=== PATIENT | female | born 1990 | race Two or more races ===

== ENCOUNTER 2016-07-10 10:22 | Emergency (ER) | payer OTHER ==
[2016-07-10 10:42] VITALS: BP 121/73
[2016-07-10 10:50] LABS: BILIRUBIN,URINE NEGATIVE (NEG); GLUCOSE,URINE NEGATIVE (NEG); NITRITE,URINE NEGATIVE (NEG); PH,URINE 5.5; PROTEIN,URINE NEGATIVE (NEG-TRACE); UROBILINOGEN,URINE 0.2 mg/dL (0.2 mg/dL)
[2016-07-10 11:03] LABS: RBC,URINE 0 /HPF (0-2)
[2016-07-10 11:04] LABS: BACTERIA,URINE MOD /HPF (0-FEW); SQUAMOUS EPITHELIAL CELL,UR FEW /LPF
[2016-07-10 11:11] LABS: BASO % 0 % (0-3); EOS % 1 % (0-3); HEMATOCRIT 39.6 % (36.0-47.0); HEMOGLOBIN 13.1 g/dL (12.0-15.5); LYMPH # 0.9 x10^3/uL (1.0-4.8); LYMPH % 10 % (24-48); MEAN CORPUSCULAR HEMOGLOBIN 30 pg (25-35); MEAN CORPUSCULAR HGB CONC 33 g/dL (31-37); MEAN CORPUSCULAR VOLUME 89 fL (79-100); MONO % 5 % (0-9); NEUT % 84 % (31-73); PLATELET COUNT 363 x10^3/uL (140-400); RED BLOOD COUNT 4.43 x10^6/uL (3.50-5.40); WHITE BLOOD COUNT 9.6 x10^3/uL (4.0-11.0)
[2016-07-10] MEDS ORDERED: IV NORMAL SALINE 1000ML BAG 1,000 ML IV ONE (11:15)
[2016-07-10] MEDS ORDERED: KETOROLAC TROMETHAMINE 30 MG/ML INJ. IV ONE (11:15)
[2016-07-10] MEDS ORDERED: FAMOTIDINE 20 MG/2 ML VIAL IVP ONE (11:15)
[2016-07-10 11:44] LABS: ALBUMIN 3.9 g/dL (3.4-5.0); ALBUMIN/GLOBULIN RATIO 0.9 (1.0-1.7); CALCIUM 9.1 mg/dL (8.5-10.1); CREATININE 0.7 mg/dL (0.6-1.0); POTASSIUM 3.8 mmol/L (3.5-5.1); TOTAL BILIRUBIN 0.7 mg/dL (0.2-1.0); TOTAL PROTEIN 8.4 g/dL (6.4-8.2)
--- NOTE | 2016-07-10 12:28 | PHYS DOC ---
Past Medical History Past Medical History: Migraines Past Surgical History: Alcohol Use: None Drug Use: None Adult General Chief Complaint Chief Complaint: ABDOMINAL PAIN HPI HPI Patient is a 26 year old female with no significant medical history who presents with nausea vomiting and diarrhea since yesterday. Patient's also complaining of generalized abdominal pain. She states most of it is left upper quadrant. Patient denies any chance she is , denies any urgency frequency dysuria. Denies any alcohol abuse. Review of Systems Review of Systems Constitutional: Denies fever or chills [] Eyes: Denies change in visual acuity, redness, or eye pain [] HENT: Denies nasal congestion or sore throat [] Respiratory: Denies cough or shortness of breath [] Cardiovascular: No additional information not addressed in HPI [] GI: abdominal pain, nausea, vomiting, and diarrhea [] : Denies dysuria or hematuria [] Musculoskeletal: Denies back pain or joint pain [] Integument: Denies rash or skin lesions [] Neurologic: Denies headache, focal weakness or sensory changes [] Endocrine: Denies polyuria or polydipsia [] Current Medications Current Medications Current Medications Medications (Trade) Dose Ordered Sig/Ayah Start Time Stop Time Status Last Admin Dose Admin Famotidine (Pepcid) 20 mg 1X ONCE 07/10/16 11:15 07/10/16 11:16 DC 07/10/16 11:07 20 MG Ketorolac Tromethamine (Toradol) 30 mg 1X ONCE 07/10/16 11:15 07/10/16 11:16 DC 07/10/16 11:08 30 MG Sodium Chloride 1,000 ml @ 1,000 mls/hr 1X ONCE 07/10/16 11:15 07/10/16 12:14 DC 07/10/16 11:07 1,000 MLS/HR Allergies Allergies Allergies Coded Allergies Type Severity Reaction Last Updated Verified No Known Drug Allergies 07/10/16 No Physical Exam Physical Exam Constitutional: Well developed, well nourished, no acute distress, non-toxic appearance. [] HENT: Normocephalic, atraumatic, bilateral external ears normal, oropharynx moist, no oral exudates, nose normal. [] Eyes: PERRLA, EOMI, conjunctiva normal, no discharge. [] Neck: Normal range of motion, no tenderness, supple, no stridor. [] Cardiovascular:Heart rate regular rhythm, no murmur [] Lungs & Thorax: Bilateral breath sounds clear to auscultation [] Abdomen: Bowel sounds normal, soft, no tenderness, no masses, no pulsatile masses. [] Skin: Warm, dry, no erythema, no rash. [] Back: No tenderness, no CVA tenderness. [] Extremities: No tenderness, no cyanosis, no clubbing, ROM intact, no edema. [] Neurologic: Alert and oriented X 3, normal motor function, normal sensory function, no focal deficits noted. [] Psychologic: Affect normal, judgement normal, mood normal. [] Current Patient Data Vital Signs Vital Signs Date Time Temp Pulse Resp B/P (MAP) Pulse Ox O2 Delivery O2 Flow Rate FiO2 07/10/16 10:42 97.7 75 16 121/73 (89) 98 Room Air 97.7 Lab Values Laboratory Tests Test 07/10/16 09:44 07/10/16 10:35 07/10/16 10:42 POC Urine HCG, Qualitative Hcg negative (Negative) Urine Collection Type Void Urine Color Yellow Urine Clarity Clear Urine pH 5.5 Urine Specific [place] 1.020 Urine Protein Negative mg/dL (NEG-TRACE) Urine Glucose (UA) Negative mg/dL (NEG) Urine Ketones (Stick) Trace mg/dL (NEG) Urine Blood Small (NEG) Urine Nitrite Negative (NEG) Urine Bilirubin Negative (NEG) Urine Urobilinogen Dipstick 0.2 mg/dL (0.2 mg/dL) Urine Leukocyte Esterase Small (NEG) Urine RBC 0 /HPF (0-2) Urine WBC 5-10 /HPF (0-4) Urine Squamous Epithelial Cells Few /LPF Urine Bacteria Mod /HPF (0-FEW) Urine Mucus Marked /LPF Urine Opiates Screen Neg (NEG) Urine Methadone Screen Neg (NEG) Urine Barbiturates Neg (NEG) Urine Phencyclidine Screen Neg (NEG) Urine Amphetamine/Methamphetamine Neg (NEG) Urine Benzodiazepines Screen Neg (NEG) Urine Cocaine Screen Neg (NEG) Urine Cannabinoids Screen Neg (NEG) Urine Ethyl Alcohol Neg (NEG) White Blood Count 9.6 x10^3/uL (4.0-11.0) Red Blood Count 4.43 x10^6/uL (3.50-5.40) Hemoglobin 13.1 g/dL (12.0-15.5) Hematocrit 39.6 % (36.0-47.0) Mean Corpuscular Volume 89 fL (79-100) Mean Corpuscular Hemoglobin 30 pg (25-35) Mean Corpuscular Hemoglobin Concent 33 g/dL (31-37) Red Cell Distribution Width 14.0 % (11.5-14.5) Platelet Count 363 x10^3/uL (140-400) Neutrophils (%) (Auto) 84 % (31-73) H Lymphocytes (%) (Auto) 10 % (24-48) L Monocytes (%) (Auto) 5 % (0-9) Eosinophils (%) (Auto) 1 % (0-3) Basophils (%) (Auto) 0 % (0-3) Neutrophils # (Auto) 8.1 x10^3uL (1.8-7.7) H Lymphocytes # (Auto) 0.9 x10^3/uL (1.0-4.8) L Monocytes # (Auto) 0.5 x10^3/uL (0.0-1.1) Eosinophils # (Auto) 0.1 x10^3/uL (0.0-0.7) Basophils # (Auto) 0.0 x10^3/uL (0.0-0.2) Sodium Level 140 mmol/L (136-145) Potassium Level 3.8 mmol/L (3.5-5.1) Chloride Level 103 mmol/L (98-107) Carbon Dioxide Level 27 mmol/L (21-32) Anion Gap 10 (6-14) Blood Urea Nitrogen 16 mg/dL (7-20) Creatinine 0.7 mg/dL (0.6-1.0) Estimated GFR (Cockcroft-Gault) 102.0 BUN/Creatinine Ratio 23 (6-20) H Glucose Level 113 mg/dL (70-99) H Calcium Level 9.1 mg/dL (8.5-10.1) Total Bilirubin 0.7 mg/dL (0.2-1.0) Aspartate Amino Transferase (AST) 43 U/L (15-37) H Alanine Aminotransferase (ALT) 65 U/L (14-59) H Alkaline Phosphatase 81 U/L (46-116) Total Protein 8.4 g/dL (6.4-8.2) H Albumin 3.9 g/dL (3.4-5.0) Albumin/Globulin Ratio 0.9 (1.0-1.7) L Lipase 107 U/L (73-393) Ethyl Alcohol Level < 10 mg/dL (0-10) Laboratory Tests 07/10/16 10:42 Laboratory Tests 07/10/16 10:42 EKG EKG [] Radiology/Procedures Radiology/Procedures [] Course & Med Decision Making Course & Med Decision Making Pertinent Labs and Imaging studies reviewed. (See chart for details) This is a 26-year-old female patient who presents today with nausea vomiting diarrhea and abdominal pain since yesterday. Negative urine hCG, urine positive for small amount of leukocytes. Urine also shows patient is dehydrated. CBC no acute findings. CMP with AST of 43 ALT of 65. We did order abdominal ultrasound. Abdominal ultrasound is negative for any acute findings. Patient's symptoms are probably viral. Discharged with Bactrim for UTI. Instructed push fluids and maintain good hand hygiene. Follow-up with her own doctor in 1-2 weeks. Dragon Disclaimer Dragon Disclaimer This electronic medical record was generated, in whole or in part, using a voice recognition dictation system. Departure Departure Impression: Primary Impression: Nausea and vomiting Additional Impressions: Diarrhea Urinary tract infection Dehydration Elevated liver enzymes Disposition: 01 HOME, SELF-CARE Condition: STABLE Referrals: JEFFY FARLEY MD (PCP) Follow-up with your doctor in one week Patient Instructions: Diarrhea, Nausea and Vomiting, Urinary Tract Infection Additional Instructions: You were seen for nausea vomiting and diarrhea. This this symptoms are typically a viral. You also have urinary tract infection complete Bactrim. Take the prescribed medicines as needed for nausea and vomiting. Push fluids and maintain good hygiene at home Scripts Sulfamethoxazole/Trimethoprim (BACTRIM DS TABLET) 1 Each Tablet 1 TAB PO BID, #6 TAB Prov: MUTUNGA,JULIETTE TRACK LAYING EQUIPMENT OPERATOR 07/10/16 Ondansetron (ZOFRAN ODT) 4 Mg Tab.rapdis 1 TAB SL Q8HRS, #15 TAB Prov: MUTUNGA,JULIETTE [employer] LAYING EQUIPMENT OPERATOR 07/10/16 Problem Qualifiers Primary Impression: Nausea and vomiting Vomiting type: unspecified Vomiting Intractability: non-intractable Qualified Codes: R11.2 - Nausea with vomiting, unspecified Additional Impressions: Diarrhea Diarrhea type: unspecified type Qualified Codes: R19.7 - Diarrhea, unspecified Urinary tract infection Urinary tract infection type: site unspecified Hematuria presence: without hematuria Qualified Codes: N39.0 - Urinary tract infection, site not specified JULIETTE MOY APRN Jul 10, 2016 12:28
--- NOTE | 2016-07-10 12:42 | RAD ---
Indication: Left upper quadrant pain. The pancreas and aorta are poorly visualized likely owing to patient body habitus. Liver is mildly enlarged at 17.2 cm. There is increased echogenicity consistent with fatty infiltration. No focal mass is identified. The gallbladder is without stones or sludge. No wall thickening or pericholecystic fluid is identified. No biliary ductal dilatation is seen. The spleen is normal in size. The kidneys are unremarkable. No ascites is seen. Impression: Mild hepatomegaly and fatty infiltration. The study is otherwise unremarkable.
[2016-07-10 13:40] LABS: BARBITURATES NEG (NEG); BENZODIAZEPINES NEG (NEG); CANNABINOIDS NEG (NEG); COCAINE NEG (NEG); METHADONE NEG (NEG); OPIATES NEG (NEG); PHENCYCLIDINE NEG (NEG)
[2016-07-10] MEDS ORDERED: SULF1TAB24 PO (13:52)
[2016-07-10] MEDS ORDERED: ONDA4TAB10 SL (13:52)
== END 2016-07-10 13:56 | disposition home or self-care (01) ==
LOC: ER 10:22
DX: N39.0 Urinary tract infection, site not specified (principal); G43.909 Migraine, unspecified, not intractable, without status migrainosus; R79.89 Other specified abnormal findings of blood chemistry; R19.7 Diarrhea, unspecified; E86.0 Dehydration
CPT/HCPCS: 36415; 76700; 80053; 80305; 80320; 81001; 81025; 83690; 85027; 96361; 96374; 96375; 99285; J1885; J7030; S0028; G0480; G0481

== ENCOUNTER → 2018-08-17 | Outpatient (CLI) | payer OTHER ==
[~2018-08-17] MED LIST: ONDA4TAB10 SL; SULF1TAB24 PO
[2018-08-17 10:38] LABS: BASO % 1 % (0-3); EOS # 0.1 x10^3/uL (0.0-0.7); EOS % 1 % (0-3); HEMATOCRIT 37.4 % (36.0-47.0); HEMOGLOBIN 12.7 g/dL (12.0-15.5); LYMPH % 17 % (24-48); MEAN CORPUSCULAR HEMOGLOBIN 29 pg (25-35); MEAN CORPUSCULAR HGB CONC 34 g/dL (31-37); MEAN CORPUSCULAR VOLUME 87 fL (79-100); MONO # 0.4 x10^3/uL (0.0-1.1); MONO % 7 % (0-9); NEUT # 4.5 x10^3/uL (1.8-7.7); NEUT % 75 % (31-73); PLATELET COUNT 357 x10^3/uL (140-400); RED BLOOD COUNT 4.31 x10^6/uL (3.50-5.40); RED CELL DISTRIBUTION WIDTH 14.5 % (11.5-14.5); WHITE BLOOD COUNT 6.1 x10^3/uL (4.0-11.0)
[2018-08-17 10:48] LABS: ALBUMIN 3.7 g/dL (3.4-5.0); ALBUMIN/GLOBULIN RATIO 0.9 (1.0-1.7); CREATININE 0.7 mg/dL (0.6-1.0); GFR 100.4; POTASSIUM 3.8 mmol/L (3.5-5.1); TOTAL BILIRUBIN 0.8 mg/dL (0.2-1.0); TOTAL PROTEIN 7.9 g/dL (6.4-8.2)
[2018-08-17 10:59] LABS: FREE T4 1.04 ng/dL (0.76-1.46); THYROID STIM HORMONE (TSH) 0.854 uIU/mL (0.358-3.74)
[2018-08-17 21:10] LABS: THYROPEROXIDASE ANTIBODY 16 IU/mL (0-34); THYROXINE 9.3 ug/dL (4.5-12.0)
[2018-08-17 22:08] LABS: RHEUMATOID FACTOR <10.0 IU/mL (0.0-13.9)
== END | disposition home or self-care (01) ==
LOC: LAB 10:04
PROVIDERS: ATTEND Nurse Practitioner Family
DX: M25.50 Pain in unspecified joint (principal); E04.9 Nontoxic goiter, unspecified
CPT/HCPCS: 36415; 80053; 82306; 83540; 83550; 84436; 84439; 84443; 84481; 85025; 86376; 86431

== ENCOUNTER → 2018-08-21 | Outpatient (CLI) | payer OTHER ==
--- NOTE | 2018-08-21 17:04 | KCIC ---
Examination: Ultrasound thyroid HISTORY: History of thyroid nodule COMPARISON: None available FINDINGS: The right lobe of thyroid gland measures 5.1 x 1.2 x 1.8 cm. The left lobe of thyroid gland measures 4.7 x 1.8 x 2.2 cm. There is a solid-appearing nodule in the superior left lobe of the thyroid gland measuring 5 mm. A 8 mm solid nodule identified in the midpole of the left lobe of the thyroid gland. A large 2.7 cm complex solid nodule identified in the lower left lobe of the thyroid gland with vascularity within. IMPRESSION: 1. Complex solid nodule measuring 2.7 cm identified in the inferior left lobe of thyroid gland. Moderately suspicious. ACR TR 4.Recommend fine-needle aspiration. Electronically signed by: Tomás Loaiza MD (08/21/2018 5:01 PM) [facility]
== END | disposition home or self-care (01) ==
LOC: KCIC US 14:32
PROVIDERS: ATTEND Nurse Practitioner Family
DX: E04.2 Nontoxic multinodular goiter (principal)
CPT/HCPCS: 76536

== ENCOUNTER → 2018-09-18 | Outpatient (CLI) | payer OTHER ==
--- NOTE | 2018-09-18 12:43 | RAD ---
CLINICAL HISTORY: Left thyroid nodule COMPARISON: 08/21/2018 PROCEDURE: Preliminary sonographic images of the left thyroid were obtained. A 2.8 x 1.5 x 1.8 cm heterogeneously hypoechoic solid nodule is seen. The procedure and risks of ultrasound guided aspiration were explained to the patient and informed written consent obtained. Verification pause was observed. Laterality was confirmed. The site of aspiration was marked. Using standard sterile technique, 4 25 G fine needle aspirations of the left thyroid nodule were obtained. There were no immediate complications. Estimated blood loss: 0 mL Performing physician: Dr. Cordelia Padilal IMPRESSION: 1. Successful FNA of the left thyroid nodule Electronically signed by: Boogie Padilla MD (09/18/2018 12:40 PM) [facility]
--- NOTE | 2018-09-22 19:06 | PATHOLOGY ---
Note [facility] Accession Number: [id number] TESTS RESULT FLAG UNITS REF RANGE LAB Clinician Provided Cytology Information No. of containers..01 Other (Miscellaneous) Source: LEFT THYROID DIAGNOSIS: LEFT THYROID BETHESDA CATEGORY II. BENIGN CYTOLOGIC FINDINGS CONSISTENT WITH BENIGN FOLLICULAR NODULE. CASE ALSO EXAMINED BY DR. HUSTON, CYTOPATHOLOGIST, WHO CONCURS WITH THE DIAGNOSIS. THIS INTERPRETATION INCLUDES EVALUATION OF A CELL BLOCK. Pathologist ICD10: 02 R89.6 Signed out by: Tremaine Rodriguez MD, Pathologist NPI- [id number] Performed by: Zhen Corbin, Car Painter ([facility]) Gross description: 01 30ML, RED, CLEAR /LCS FLAG LEGEND: L-Low Normal,H-High Normal,LL-Alert Low,HH-Alert High <-Panic Low,>-Panic High,A-Abnormal,AA-Critical Abnormal Performed at: [facility] [address] [place] [address] Twin Madsen MD, 02 [facility] [address] [place] [address] Tremaine Rodriguez MD, Specimen Comment: A courtesy copy of this report has been sent to Specimen Comment: [phone], , . Specimen Comment: Report sent to ,DR FLAHERTY / DR FARLEY Specimen Comment: A duplicate report has been generated due to demographic updates. Performed at: [address], [place], [place] [id number] MD Twin Madsen MD Phone: [phone]
== END | disposition home or self-care (01) ==
LOC: US 11:00
PROVIDERS: ATTEND Internal Medicine Endocrinology, Diabetes & Metabolism
DX: E04.1 Nontoxic single thyroid nodule (principal)
CPT/HCPCS: 10005; 76942; 88173; 88305

== ENCOUNTER 2018-09-23 19:29 | Emergency (ER) | payer OTHER ==
[~2018-09-23] VITALS: Ht 172.7 cm; Wt 104.3 kg
[2018-09-23] MEDS ORDERED: IV NORMAL SALINE 1000ML BAG 1,000 ML IV ONE (20:15)
[2018-09-23 20:25] LABS: BASO % 1 % (0-3); EOS # 0.1 x10^3/uL (0.0-0.7); EOS % 2 % (0-3); HEMATOCRIT 36.7 % (36.0-47.0); HEMOGLOBIN 12.4 g/dL (12.0-15.5); LYMPH # 1.6 x10^3/uL (1.0-4.8); LYMPH % 29 % (24-48); MEAN CORPUSCULAR HEMOGLOBIN 29 pg (25-35); MEAN CORPUSCULAR HGB CONC 34 g/dL (31-37); MEAN CORPUSCULAR VOLUME 87 fL (79-100); MONO # 0.4 x10^3/uL (0.0-1.1); MONO % 8 % (0-9); NEUT # 3.3 x10^3/uL (1.8-7.7); NEUT % 61 % (31-73); PLATELET COUNT 300 x10^3/uL (140-400); RED CELL DISTRIBUTION WIDTH 14.8 % (11.5-14.5); WHITE BLOOD COUNT 5.5 x10^3/uL (4.0-11.0)
--- NOTE | 2018-09-23 20:27 | PHYS DOC ---
Past Medical History Past Medical History: Migraines Additional Past Medical Histor: BILATERAL THYROID MASSES Past Surgical History: Alcohol Use: Occasionally Drug Use: None Adult General Chief Complaint Chief Complaint: DIFFICULTY SWALLOWING HPI HPI Patient is a 28 year old [f__sex] who presents with [] Review of Systems Review of Systems Constitutional: Denies fever or chills Eyes: Denies redness or eye pain HENT: Denies nasal congestion or sore throat Respiratory: Denies cough or shortness of breath Cardiovascular: Denies chest pain or palpitations GI: Denies abdominal pain, nausea, or vomiting : Denies dysuria or hematuria Musculoskeletal: Denies back pain or joint pain Integument: Denies rash or skin lesions Neurologic: Denies headache, focal weakness or sensory changes Complete systems were reviewed and found to be within normal limits, except as documented in this note. Current Medications Current Medications Current Medications Medications (Trade) Dose Ordered Sig/Ayah Start Time Stop Time Status Last Admin Dose Admin Info (CONTRAST GIVEN -- Rx MONITORING) 1 each PRN DAILY PRN 09/23/18 21:15 09/23/18 22:37 DC Iohexol (Omnipaque 300 Mg/ml) 70 ml 1X ONCE 09/23/18 21:30 09/23/18 21:31 DC 09/23/18 21:17 70 ML Sodium Chloride 1,000 ml @ 1,000 mls/hr 1X ONCE 09/23/18 20:15 09/23/18 21:14 DC 09/23/18 20:21 1,000 MLS/HR Allergies Allergies Allergies Coded Allergies Type Severity Reaction Last Updated Verified No Known Drug Allergies 07/10/16 No Physical Exam Physical Exam Constitutional: Well developed, well nourished, no acute distress, non-toxic appearance HENT: Normocephalic, atraumatic, oropharynx moist Eyes: PERRL, EOMI, conjunctiva normal, no discharge Neck: Normal range of motion, no tenderness, supple Cardiovascular: Heart rate normal, regular rhythm Lungs & Thorax: Bilateral breath sounds clear to auscultation, no wheezing Abdomen: Soft, no tenderness Skin: Warm, dry, no erythema, no rash Back: No tenderness, no CVA tenderness Extremities: No tenderness, ROM intact, no edema Neurologic: Alert and oriented X 3, normal motor function, normal sensory function, no focal deficits noted Psychologic: Affect normal, judgement normal, mood normal Current Patient Data Vital Signs Vital Signs Date Time Temp Pulse Resp B/P (MAP) Pulse Ox O2 Delivery O2 Flow Rate FiO2 09/23/18 22:15 68 18 118/70 (86) 97 Room Air 09/23/18 19:38 98.2 98.2 Lab Values Laboratory Tests Test 09/23/18 20:15 White Blood Count 5.5 x10^3/uL (4.0-11.0) Red Blood Count 4.20 x10^6/uL (3.50-5.40) Hemoglobin 12.4 g/dL (12.0-15.5) Hematocrit 36.7 % (36.0-47.0) Mean Corpuscular Volume 87 fL (79-100) Mean Corpuscular Hemoglobin 29 pg (25-35) Mean Corpuscular Hemoglobin Concent 34 g/dL (31-37) Red Cell Distribution Width 14.8 % (11.5-14.5) H Platelet Count 300 x10^3/uL (140-400) Neutrophils (%) (Auto) 61 % (31-73) Lymphocytes (%) (Auto) 29 % (24-48) Monocytes (%) (Auto) 8 % (0-9) Eosinophils (%) (Auto) 2 % (0-3) Basophils (%) (Auto) 1 % (0-3) Neutrophils # (Auto) 3.3 x10^3/uL (1.8-7.7) Lymphocytes # (Auto) 1.6 x10^3/uL (1.0-4.8) Monocytes # (Auto) 0.4 x10^3/uL (0.0-1.1) Eosinophils # (Auto) 0.1 x10^3/uL (0.0-0.7) Basophils # (Auto) 0.0 x10^3/uL (0.0-0.2) Sodium Level 140 mmol/L (136-145) Potassium Level 3.7 mmol/L (3.5-5.1) Chloride Level 100 mmol/L (98-107) Carbon Dioxide Level 28 mmol/L (21-32) Anion Gap 12 (6-14) Blood Urea Nitrogen 16 mg/dL (7-20) Creatinine 0.7 mg/dL (0.6-1.0) Estimated GFR (Cockcroft-Gault) 100.4 BUN/Creatinine Ratio 23 (6-20) H Glucose Level 90 mg/dL (70-99) Calcium Level 9.4 mg/dL (8.5-10.1) Total Bilirubin 1.0 mg/dL (0.2-1.0) Aspartate Amino Transferase (AST) 37 U/L (15-37) Alanine Aminotransferase (ALT) 55 U/L (14-59) Alkaline Phosphatase 59 U/L (46-116) Total Protein 7.6 g/dL (6.4-8.2) Albumin 3.9 g/dL (3.4-5.0) Albumin/Globulin Ratio 1.1 (1.0-1.7) Serum Test, Qualitative Negative (NEG) Laboratory Tests 09/23/18 20:15 Laboratory Tests 09/23/18 20:15 EKG EKG [] Radiology/Procedures Radiology/Procedures PROCEDURE: CT SOFT TISSUE NECK W/CONTRAST Exam: CT neck with contrast INDICATION: Difficulty swallowing TECHNIQUE: Sequential axial images through the neck obtained following the administration of 70 mL of Isovue-300 IV contrast. Sagittal and coronal reformatted images were reconstructed from the axial data and reviewed. Comparisons: None FINDINGS: Visualized intracranial structures are unremarkable. Visualized portions of paranasal sinuses and mastoid air cells are well pneumatized. Cervical vascular structures are patent. Nasopharynx, oropharynx, hypopharynx and larynx are unremarkable. There is redemonstration of a approximately 2 cm nodule in the posterior left thyroid lobe. Salivary glands are unremarkable. No enlarged cervical lymph nodes are identified. Visualized lung apices are clear. No suspicious osseous lesions or acute fractures. IMPRESSION: 1. Redemonstration of approximately 2 cm hypoattenuating nodule in the posterior left thyroid lobe. 2. No acute process identified in the neck. Exposure: One or more of the following in the visualized dose reduction techniques were utilized for this examination: 1. Automated exposure control 2. Adjustment of the MA and/or KV according to patient size 3. Use of iterative of reconstructive technique Electronically signed by: Ramos Mejia MD (09/23/2018 10:01 PM) [facility] Course & Med Decision Making Course & Med Decision Making Pertinent Labs and Imaging studies reviewed. (See chart for details) Patient stable for discharge with outpatient follow-up with PCP. Discussed findings and plan with patient and family, who acknowledge understanding and agreement. Dragon Disclaimer Dragon Disclaimer This electronic medical record was generated, in whole or in part, using a voice recognition dictation system. Departure Departure Impression: Primary Impression: Thyroid nodule Disposition: HOME, SELF-CARE Condition: STABLE Referrals: JEFFY FARLEY MD (PCP) MELISSA AKERS MD Patient Instructions: Thyroid Biopsy, Thyroid Cyst Additional Instructions: ICE area 20 min on/off for next few days. Please follow closely with your doctor regarding your results of your biopsy. ARIN BRAMBILA DO Sep 23, 2018 20:27
[2018-09-23 20:29] LABS: CALCIUM 9.4 mg/dL (8.5-10.1); CREATININE 0.7 mg/dL (0.6-1.0); GFR 100.4; POTASSIUM 3.7 mmol/L (3.5-5.1)
[2018-09-23 20:31] LABS: PREG TEST PT QUAL NEGATIVE (NEG)
[2018-09-23 20:35] LABS: ALBUMIN 3.9 g/dL (3.4-5.0); ALBUMIN/GLOBULIN RATIO 1.1 (1.0-1.7); TOTAL PROTEIN 7.6 g/dL (6.4-8.2)
[2018-09-23] MEDS ORDERED: CONTRAST GIVEN. MC PRN (21:15)
[2018-09-23] MEDS ORDERED: IOHEXOL 300 MG/ML 100ML VIAL. IV ONE (21:30)
--- NOTE | 2018-09-23 22:04 | RAD ---
Exam: CT neck with contrast INDICATION: Difficulty swallowing TECHNIQUE: Sequential axial images through the neck obtained following the administration of 70 mL of Isovue-300 IV contrast. Sagittal and coronal reformatted images were reconstructed from the axial data and reviewed. Comparisons: None FINDINGS: Visualized intracranial structures are unremarkable. Visualized portions of paranasal sinuses and mastoid air cells are well pneumatized. Cervical vascular structures are patent. Nasopharynx, oropharynx, hypopharynx and larynx are unremarkable. There is redemonstration of a approximately 2 cm nodule in the posterior left thyroid lobe. Salivary glands are unremarkable. No enlarged cervical lymph nodes are identified. Visualized lung apices are clear. No suspicious osseous lesions or acute fractures. IMPRESSION: 1. Redemonstration of approximately 2 cm hypoattenuating nodule in the posterior left thyroid lobe. 2. No acute process identified in the neck. Exposure: One or more of the following in the visualized dose reduction techniques were utilized for this examination: 1. Automated exposure control 2. Adjustment of the MA and/or KV according to patient size 3. Use of iterative of reconstructive technique Electronically signed by: Ramos Mejia MD (09/23/2018 10:01 PM) [facility]
[2018-09-23 22:15] VITALS: BP 118/70
== END 2018-09-23 22:30 | disposition home or self-care (01) ==
LOC: ER 19:29
DX: E04.1 Nontoxic single thyroid nodule (principal); G43.909 Migraine, unspecified, not intractable, without status migrainosus; Z98.890 Other specified postprocedural states
CPT/HCPCS: 36415; 70491; 80053; 84703; 85025; 99285; J7030; Q9967

== ENCOUNTER → 2019-01-19 | Outpatient (CLI) | payer OTHER ==
[2019-01-19 14:08] LABS: BASO % 0 % (0-3); EOS # 0.1 x10^3/uL (0.0-0.7); EOS % 1 % (0-3); HEMOGLOBIN 13.3 g/dL (12.0-15.5); LYMPH # 1.6 x10^3/uL (1.0-4.8); LYMPH % 23 % (24-48); MEAN CORPUSCULAR HEMOGLOBIN 30 pg (25-35); MEAN CORPUSCULAR HGB CONC 34 g/dL (31-37); MEAN CORPUSCULAR VOLUME 88 fL (79-100); MONO # 0.4 x10^3/uL (0.0-1.1); MONO % 6 % (0-9); NEUT # 4.8 x10^3/uL (1.8-7.7); NEUT % 70 % (31-73); PLATELET COUNT 326 x10^3/uL (140-400); RED BLOOD COUNT 4.43 x10^6/uL (3.50-5.40); RED CELL DISTRIBUTION WIDTH 14.5 % (11.5-14.5); WHITE BLOOD COUNT 6.9 x10^3/uL (4.0-11.0)
[2019-01-19 14:33] LABS: ALBUMIN 3.7 g/dL (3.4-5.0); CALCIUM 8.6 mg/dL (8.5-10.1); CREATININE 0.8 mg/dL (0.6-1.0); TOTAL BILIRUBIN 0.3 mg/dL (0.2-1.0); TOTAL PROTEIN 7.5 g/dL (6.4-8.2)
[2019-01-20 02:08] LABS: HEMOGLOBIN A1C 5.8 % (4.8-5.6)
== END | disposition home or self-care (01) ==
LOC: LAB 13:49
PROVIDERS: ATTEND Family Medicine
DX: E04.1 Nontoxic single thyroid nodule (principal); R42 Dizziness and giddiness; R73.01 Impaired fasting glucose
CPT/HCPCS: 36415; 80053; 83036; 84436; 84443; 85025

== ENCOUNTER 2019-02-22 00:45 | Inpatient (IN) | payer OTHER ==
[2019-02-22] VITALS (10 sets, daily range): BP systolic 90–120; BP diastolic 46–66
[~2019-02-22] VITALS: Ht 172.7 cm; Wt 101.2 kg
[2019-02-22 01:37] LABS: BILIRUBIN,URINE NEGATIVE (NEG); CLARITY,URINE CLEAR; COLOR,URINE YELLOW; NITRITE,URINE NEGATIVE (NEG); PROTEIN,URINE NEGATIVE (NEG-TRACE)
[2019-02-22 01:39] LABS: BASO % 0 % (0-3); EOS # 0.1 x10^3/uL (0.0-0.7); EOS % 1 % (0-3); HEMATOCRIT 41.1 % (36.0-47.0); LYMPH # 1.7 x10^3/uL (1.0-4.8); LYMPH % 22 % (24-48); MEAN CORPUSCULAR HEMOGLOBIN 30 pg (25-35); MEAN CORPUSCULAR HGB CONC 34 g/dL (31-37); MEAN CORPUSCULAR VOLUME 88 fL (79-100); MONO # 0.6 x10^3/uL (0.0-1.1); MONO % 8 % (0-9); NEUT % 68 % (31-73); PLATELET COUNT 356 x10^3/uL (140-400); RED BLOOD COUNT 4.65 x10^6/uL (3.50-5.40); RED CELL DISTRIBUTION WIDTH 14.5 % (11.5-14.5); WHITE BLOOD COUNT 7.5 x10^3/uL (4.0-11.0)
[2019-02-22 01:41] LABS: BACTERIA,URINE FEW /HPF (0-FEW); SQUAMOUS EPITHELIAL CELL,UR MOD /LPF; WBC,URINE 20-40 /HPF (0-4)
[2019-02-22 01:42] LABS: AMORPHOUS SEDIMENT,UR PRESENT /HPF; SPERM,URINE PRESENT /HPF
[2019-02-22 01:43] LABS: RBC,URINE RARE /HPF (0-2)
[2019-02-22 01:45] LABS: CALCIUM 9.5 mg/dL (8.5-10.1); CREATININE 0.7 mg/dL (0.6-1.0); GFR 100.4; POTASSIUM 3.3 mmol/L (3.5-5.1)
[2019-02-22 01:50] LABS: ALBUMIN 4.1 g/dL (3.4-5.0); ALBUMIN/GLOBULIN RATIO 1.1 (1.0-1.7); TOTAL BILIRUBIN 0.4 mg/dL (0.2-1.0); TOTAL PROTEIN 7.8 g/dL (6.4-8.2)
[2019-02-22] MEDS ORDERED: FAMOTIDINE 20 MG/2 ML VIAL IVP ONE (02:00)
[2019-02-22] MEDS ORDERED: ONDANSETRON PF 4 MG/2 ML VIAL. IVP ONE ×2 (02:00→05:30)
--- NOTE | 2019-02-22 02:22 | PHYS DOC ---
Past Medical History Past Medical History: Migraines Additional Past Medical Histor: BILATERAL THYROID MASSES, GESTATIONAL DM Past Surgical History: Alcohol Use: Occasionally Drug Use: None Adult General Chief Complaint Chief Complaint: ABDOMINAL PAIN HPI HPI Patient is a 28 year old female presents acute onset right upper quadrant pain awakening her from sleep with nausea vomiting. Pain is cramping, rated moderate to severe and is nonradiating. Patient unable to find position of comfort or relief. No prior episodes. No fevers chills. No back pain, flank pain, diarrhea. No urinary frequency urgency or dysuria. No hematuria or history of kidney stones. Last menstrual period was 2 weeks ago..[] Review of Systems Review of Systems reView of symptoms as per history of present illness. All other review symptoms are negative. All other systems were reviewed and found to be within normal limits, except as documented in this note. Current Medications Current Medications Current Medications Medications (Trade) Dose Ordered Sig/Ayah Start Time Stop Time Status Last Admin Dose Admin Cefepime HCl (Maxipime) 2 gm 1X ONCE 02/22/19 04:30 02/22/19 04:31 DC 02/22/19 03:59 2 GM Famotidine (Pepcid Vial) 20 mg 1X ONCE 02/22/19 02:00 02/22/19 02:01 DC 02/22/19 01:32 20 MG Info (CONTRAST GIVEN -- Rx MONITORING) 1 each PRN DAILY PRN 02/22/19 03:15 02/24/19 03:14 Iohexol (Omnipaque 300 Mg/ml) 75 ml 1X ONCE 02/22/19 03:30 02/22/19 03:31 DC 02/22/19 03:11 75 ML Ketorolac Tromethamine (Toradol 15mg Vial) 15 mg 1X ONCE 02/22/19 06:00 02/22/19 06:01 Morphine Sulfate (Morphine Sulfate) 4 mg 1X ONCE 02/22/19 03:00 02/22/19 03:01 DC 02/22/19 02:53 4 MG Ondansetron HCl (Zofran) 4 mg 1X ONCE 02/22/19 05:30 02/22/19 05:31 02/22/19 05:00 4 MG Allergies Allergies Allergies Coded Allergies Type Severity Reaction Last Updated Verified No Known Drug Allergies 07/10/16 No Physical Exam Physical Exam Constitutional: Anxious, moderate distress secondary to pain. [] HENT: Normocephalic, atraumatic, bilateral external ears normal, oropharynx moist,nose normal. [] Eyes: PERRLA, EOMI, conjunctiva normal. [] Neck: Normal range of motion. [] Cardiovascular:Heart rate regular rhythm, no murmur [] Lungs & Thorax: Bilateral breath sounds clear to auscultation [] Abdomen: Bowel sounds normal, soft, RUQ pain/tenderness. [] Skin: Warm, dry, no erythema, no rash. [] Back: No tenderness, no CVA tenderness. [] Extremities: No tenderness, no edema. [] Neurologic: Alert and oriented X 3, normal motor function, normal sensory function, no focal deficits noted. [] Psychologic: Affect normal, judgement normal, mood normal. [] Current Patient Data Vital Signs Vital Signs Date Time Temp Pulse Resp B/P (MAP) Pulse Ox O2 Delivery O2 Flow Rate FiO2 02/22/19 02:53 89 16 119/83 (95) 99 Room Air 02/22/19 00:48 97.9 97.9 Lab Values Laboratory Tests Test 02/22/19 00:52 02/22/19 00:56 02/22/19 01:00 Urine Collection Type Unknown Urine Color Yellow Urine Clarity Clear Urine pH 6.0 Urine Specific [place] 1.020 Urine Protein Negative mg/dL (NEG-TRACE) Urine Glucose (UA) Negative mg/dL (NEG) Urine Ketones (Stick) Negative mg/dL (NEG) Urine Blood Negative (NEG) Urine Nitrite Negative (NEG) Urine Bilirubin Negative (NEG) Urine Urobilinogen Dipstick 1.0 mg/dL (0.2 mg/dL) Urine Leukocyte Esterase Moderate (NEG) Urine RBC Rare /HPF (0-2) Urine WBC 20-40 /HPF (0-4) Urine Squamous Epithelial Cells Mod /LPF Urine Amorphous Sediment Present /HPF Urine Bacteria Few /HPF (0-FEW) Urine Mucus Mod /LPF Urine Sperm Present /HPF POC Urine HCG, Qualitative Hcg negative (Negative) White Blood Count 7.5 x10^3/uL (4.0-11.0) Red Blood Count 4.65 x10^6/uL (3.50-5.40) Hemoglobin 14.0 g/dL (12.0-15.5) Hematocrit 41.1 % (36.0-47.0) Mean Corpuscular Volume 88 fL (79-100) Mean Corpuscular Hemoglobin 30 pg (25-35) Mean Corpuscular Hemoglobin Concent 34 g/dL (31-37) Red Cell Distribution Width 14.5 % (11.5-14.5) Platelet Count 356 x10^3/uL (140-400) Neutrophils (%) (Auto) 68 % (31-73) Lymphocytes (%) (Auto) 22 % (24-48) L Monocytes (%) (Auto) 8 % (0-9) Eosinophils (%) (Auto) 1 % (0-3) Basophils (%) (Auto) 0 % (0-3) Neutrophils # (Auto) 5.0 x10^3/uL (1.8-7.7) Lymphocytes # (Auto) 1.7 x10^3/uL (1.0-4.8) Monocytes # (Auto) 0.6 x10^3/uL (0.0-1.1) Eosinophils # (Auto) 0.1 x10^3/uL (0.0-0.7) Basophils # (Auto) 0.0 x10^3/uL (0.0-0.2) Sodium Level 139 mmol/L (136-145) Potassium Level 3.3 mmol/L (3.5-5.1) L Chloride Level 102 mmol/L (98-107) Carbon Dioxide Level 30 mmol/L (21-32) Anion Gap 7 (6-14) Blood Urea Nitrogen 15 mg/dL (7-20) Creatinine 0.7 mg/dL (0.6-1.0) Estimated GFR (Cockcroft-Gault) 100.4 BUN/Creatinine Ratio 21 (6-20) H Glucose Level 112 mg/dL (70-99) H Calcium Level 9.5 mg/dL (8.5-10.1) Total Bilirubin 0.4 mg/dL (0.2-1.0) Aspartate Amino Transferase (AST) 24 U/L (15-37) Alanine Aminotransferase (ALT) 34 U/L (14-59) Alkaline Phosphatase 86 U/L (46-116) Total Protein 7.8 g/dL (6.4-8.2) Albumin 4.1 g/dL (3.4-5.0) Albumin/Globulin Ratio 1.1 (1.0-1.7) Lipase 136 U/L (73-393) Laboratory Tests 02/22/19 01:00 Laboratory Tests 02/22/19 01:00 EKG EKG [] Radiology/Procedures Radiology/Procedures [Right upper quadrant ultrasound:] Course & Med Decision Making Course & Med Decision Making Pertinent Labs and Imaging studies reviewed. (See chart for details) [V fluids, antiemetics and pain medications given. Ultrasound and lab work reviewed. Ct abdomen diagnostic for acute appendicitis. IV antibiotics given. Blood manner with general surgical consult.] Dragon Disclaimer Dragon Disclaimer This electronic medical record was generated, in whole or in part, using a voice recognition dictation system. Departure Departure Impression: Primary Impression: Acute appendicitis Disposition: ADMITTED INPATIENT Condition: STABLE Referrals: SHEBA CHEN MD (PCP) SHIRA DEVLIN DO Feb 22, 2019 02:22
[2019-02-22] MEDS ORDERED: MORPHINE SULFATE 4 MG/ML VIAL. IV ONE ×2 (02:30→03:00)
--- NOTE | 2019-02-22 03:02 | RAD ---
Abdominal ultrasound Limited: Reason for examination: Right upper quadrant pain. Pancreas is poorly visualized due to bowel gas. The abdominal aorta is poorly visualized. The inferior vena cava appears be normal in caliber. The liver is normal in size at 16 cm without a focal lesion. Gallbladder contains sludge but no definite stones and no wall thickening or pericholecystic fluid is seen. Common bile duct is normal in caliber at 3.3 mm. Right kidney measures 11.2 x 5.8 x 4.3 cm in greatest dimension and shows normal cortical medullary differentiation with no mass or hydronephrosis. IMPRESSION: Sludge in the gallbladder. No choleliths evident. Electronically signed by: Mara Lorenz MD (02/22/2019 2:59 AM) [facility]
[2019-02-22] MEDS ORDERED: CONTRAST GIVEN. MC PRN (03:15)
[2019-02-22] MEDS ORDERED: IOHEXOL 300 MG/ML 100ML VIAL. IV ONE (03:30)
--- NOTE | 2019-02-22 03:35 | RAD ---
CT abdomen and pelvis with contrast: Reason for examination: Upper abdominal pain. Helical images were obtained through the abdomen and pelvis with intravenous administration of 75 cc Omnipaque 300. Reconstruction was performed in sagittal and coronal planes. Exposure: One or more of the following individualized dose reduction techniques were utilized for this examination: 1. Automated exposure control 2. Adjustment of the mA and/or kV according to patient size 3. Use of iterative reconstruction technique. The lung bases are clear. The heart size is normal with no pericardial effusion. No abnormality seen at the liver, spleen, adrenal glands, gallbladder or pancreas. The abdominal aorta and inferior vena cava show no acute abnormalities. The colon shows no diverticulosis or diverticulitis or colitis. The appendix is distended at 1.3 cm with some periappendiceal stranding near the tip consistent with appendicitis. The colon shows no diverticulosis or diverticulitis or colitis. The small intestinal tract shows no abnormal dilatation or wall thickening. No abnormality seen at the stomach. The kidneys show no renal masses, renal calculi, hydronephrosis or obstructive uropathy. No abnormality seen at the bladder. IUD is present in the uterus. There appears to be fluid-filled structures in the adnexa bilaterally which may represent presence of hydrosalpinx, right greater than left. No gross abnormalities of seen at the ovaries. Small amount of free fluid may be present in the right adnexa. No acute bony abnormalities are evident. IMPRESSION: Distended appendix with periappendiceal inflammation consistent with acute appendicitis. Fluid-filled structures in the adnexa bilaterally, right greater than left which may represent hydrosalpinx. Small amount of fluid in the right adnexa. Electronically signed by: Mara Lorenz MD (02/22/2019 3:32 AM) [facility] [place]
[2019-02-22] MEDS ORDERED: CEFEPIME HCL IV Push 2 GM VIAL. IVP ONE (04:30)
[2019-02-22] MEDS ORDERED: ONDANSETRON PF 4 MG/2 ML VIAL. IV PRN ×2 (05:45→07:15)
[2019-02-22] MEDS ORDERED: MORPHINE SULFATE 4 MG/ML VIAL. IV PRN (05:45)
[2019-02-22] MEDS: IV NORMAL SALINE 1000ML BAG 1,000 ML IV SCH ×4 (05:49→22:00)
[2019-02-22] MEDS ORDERED: KETOROLAC 15 MG/ML VIAL. IVP ONE (06:00)
[2019-02-22] MEDS ORDERED: IV RINGERS,LACTATED 1000ML 1,000 ML IV SCH (07:09)
[2019-02-22] MEDS ORDERED: HYDROmorphone 2 MG/ML VIAL IV PRN ×2 (07:15→10:45)
[2019-02-22] MEDS ORDERED: PROCHLORPERAZINE 10 MG/2 ML VIAL. IV PRN ×2 (07:15→19:30)
[2019-02-22] MEDS ORDERED: MORPHINE SULFATE 2 MG/ML VIAL. IV PRN (07:15)
[2019-02-22] MEDS ORDERED: fentaNYL PF VIAL 100 MCG/2 ML VIAL IV PRN ×2 (07:15)
--- NOTE | 2019-02-22 08:26 | PDOC2 ---
ANALI OJEDA PV INSTALLER TECH 02/22/19 0826: CONSULT Date of Consult Date of Consult DATE: 02/22/19 TIME: 08:20 Reason for Consult Reason for Consult: acute appendicitis Referring Physician Referring Physician: ER Identification/Chief Complaint Chief Complaint abdominal pain Source Source: Chart review, Patient History of Present Illness Reason for Visit: Acute onset abdominal pain RLQ, radiated up right abdomen, into shoulder. Aggravated by walking. Associated nausea and emesis. No similar symptoms in past. Past Medical History Past Medical History Gest. DM, pre diabetes, thyroid nodules Past Surgical History Past Surgical History: (x2) Family History Family History: Other (noncontributory to current illness ) Social History No ALCOHOL: rare Drugs: None Lives: with Family Current Problem List Problem List Problems Medical Problems: (1) Acute appendicitis Status: Acute Current Medications Current Medications Current Medications Ondansetron HCl (Zofran) 8 mg 1X ONCE IVP Last administered on 02/22/19at 01:32; Start 02/22/19 at 02:00; Stop 02/22/19 at 02:01; Status DC Famotidine (Pepcid Vial) 20 mg 1X ONCE IVP Last administered on 02/22/19at 01:32; Start 02/22/19 at 02:00; Stop 02/22/19 at 02:01; Status DC Morphine Sulfate (Morphine Sulfate) 4 mg 1X ONCE IV Last administered on 02/22/19at 02:09; Start 02/22/19 at 02:30; Stop 02/22/19 at 02:31; Status DC Morphine Sulfate (Morphine Sulfate) 4 mg 1X ONCE IV Last administered on 02/22/19at 02:53; Start 02/22/19 at 03:00; Stop 02/22/19 at 03:01; Status DC Iohexol (Omnipaque 300 Mg/ml) 75 ml 1X ONCE IV Last administered on 02/22/19at 03:11; Start 02/22/19 at 03:30; Stop 02/22/19 at 03:31; Status DC Info (CONTRAST GIVEN -- Rx MONITORING) 1 each PRN DAILY PRN MC SEE COMMENTS; Start 02/22/19 at 03:15; Stop 02/24/19 at 03:14 Cefepime HCl (Maxipime) 2 gm 1X ONCE IVP Last administered on 02/22/19at 03:59; Start 02/22/19 at 04:30; Stop 02/22/19 at 04:31; Status DC Ondansetron HCl (Zofran) 4 mg 1X ONCE IVP Last administered on 02/22/19at 05:00; Start 02/22/19 at 05:30; Stop 02/22/19 at 05:31; Status DC Ketorolac Tromethamine (Toradol 15mg Vial) 15 mg 1X ONCE IVP Last administered on 02/22/19at 05:37; Start 02/22/19 at 06:00; Stop 02/22/19 at 06:01; Status DC Ondansetron HCl (Zofran) 4 mg PRN Q8HRS PRN IV NAUSEA/VOMITING 1ST CHOICE; Start 02/22/19 at 05:45; Stop 02/23/19 at 05:44 Morphine Sulfate (Morphine Sulfate) 4 mg PRN Q2HR PRN IV SEVERE PAIN 7-10 Last administered on 02/22/19at 07:19; Start 02/22/19 at 05:45; Stop 02/23/19 at 05:44 Sodium Chloride 1,000 ml @ 125 mls/hr Q8H IV Last administered on 02/22/19at 05:49; Start 02/22/19 at 06:00; Stop 02/23/19 at 05:59 Ondansetron HCl (Zofran) 4 mg PRN Q6HRS PRN IV NAUSEA/VOMITING; Start 02/22/19 at 07:15; Stop 02/23/19 at 07:14 Fentanyl Citrate (Fentanyl 2ml Vial) 25 mcg PRN Q5MIN PRN IV MILD PAIN 1-3; Start 02/22/19 at 07:15; Stop 02/23/19 at 07:14 Fentanyl Citrate (Fentanyl 2ml Vial) 50 mcg PRN Q5MIN PRN IV MODERATE TO SEVERE PAIN; Start 02/22/19 at 07:15; Stop 02/23/19 at 07:14 Morphine Sulfate (Morphine Sulfate) 1 mg PRN Q10MIN PRN IV SEVERE PAIN 7-10; Start 02/22/19 at 07:15; Stop 02/23/19 at 07:14 Ringer's Solution 1,000 ml @ 30 mls/hr Q24H IV ; Start 02/22/19 at 07:09; Stop 02/22/19 at 19:08 Hydromorphone HCl (Dilaudid) 0.5 mg PRN Q10MIN PRN IV SEV PAIN, Second choice; Start 02/22/19 at 07:15; Stop 02/23/19 at 07:14 Prochlorperazine Edisylate (Compazine) 5 mg PACU PRN PRN IV NAUSEA, MRX1; Start 02/22/19 at 07:15; Stop 02/23/19 at 07:14 Active Scripts Active Bactrim Ds Tablet (Sulfamethoxazole/Trimethoprim) 1 Each Tablet 1 Tab PO BID Zofran Odt (Ondansetron) 4 Mg Tab.rapdis 1 Tab SL Q8HRS Allergies Allergies: Coded Allergies: No Known Drug Allergies (Unverified , 07/10/16) ROS General: No: Chills, Other (fevers ) PSYCHOLOGICAL ROS: No: Anxiety, Depression Eyes: No Blurry vision, No Double vision HEENT: No: Heacaches, Sore Throat Hematological and Lymphatic: No: Bleeding Problems, Blood Clots Respiratory: No: Cough, Shortness of breath Cardiovascular: No Chest Pain, No Palpitations Gastrointestinal: Yes Other (see hpi) Genitourinary: No Dysuria, No Hematuria Musculoskeletal: No Joint Pain, No Muscle Pain Neurological: No Impaired Coord/balance, No Numbness/Tingling Skin: No Pruritus, No Rash Physical Exam General: Alert, Oriented X3, Cooperative, No acute distress HEENT: Atraumatic, PERRLA Lungs: Clear to auscultation, Normal air movement Heart: Regular rate, Normal S1, Normal S2 Abdomen: Soft, Other (diffusely tender, guarding to RLQ ) Extremities: No clubbing, No cyanosis Skin: No rashes, No breakdown Neuro: Normal gait, Normal speech Psych/Mental Status: Mental status NL, Mood NL MUSCULOSKELETAL: No deformity, No swelling Vitals VITALS Vital Signs Date Time Temp Pulse Resp B/P (MAP) Pulse Ox O2 Delivery O2 Flow Rate FiO2 02/22/19 07:19 16 Room Air 02/22/19 06:45 98.5 81 112/66 (81) 98 98.5 Labs Labs Laboratory Tests Test 02/22/19 00:52 02/22/19 00:56 02/22/19 01:00 Urine Collection Type Unknown Urine Color Yellow Urine Clarity Clear Urine pH 6.0 Urine Specific [place] 1.020 Urine Protein Negative mg/dL (NEG-TRACE) Urine Glucose (UA) Negative mg/dL (NEG) Urine Ketones (Stick) Negative mg/dL (NEG) Urine Blood Negative (NEG) Urine Nitrite Negative (NEG) Urine Bilirubin Negative (NEG) Urine Urobilinogen Dipstick 1.0 mg/dL (0.2 mg/dL) Urine Leukocyte Esterase Moderate (NEG) Urine RBC Rare /HPF (0-2) Urine WBC 20-40 /HPF (0-4) Urine Squamous Epithelial Cells Mod /LPF Urine Amorphous Sediment Present /HPF Urine Bacteria Few /HPF (0-FEW) Urine Mucus Mod /LPF Urine Sperm Present /HPF Bedside Urine HCG, Qualitative Hcg negative (Negative) White Blood Count 7.5 x10^3/uL (4.0-11.0) Red Blood Count 4.65 x10^6/uL (3.50-5.40) Hemoglobin 14.0 g/dL (12.0-15.5) Hematocrit 41.1 % (36.0-47.0) Mean Corpuscular Volume 88 fL (79-100) Mean Corpuscular Hemoglobin 30 pg (25-35) Mean Corpuscular Hemoglobin Concent 34 g/dL (31-37) Red Cell Distribution Width 14.5 % (11.5-14.5) Platelet Count 356 x10^3/uL (140-400) Neutrophils (%) (Auto) 68 % (31-73) Lymphocytes (%) (Auto) 22 % (24-48) Monocytes (%) (Auto) 8 % (0-9) Eosinophils (%) (Auto) 1 % (0-3) Basophils (%) (Auto) 0 % (0-3) Neutrophils # (Auto) 5.0 x10^3/uL (1.8-7.7) Lymphocytes # (Auto) 1.7 x10^3/uL (1.0-4.8) Monocytes # (Auto) 0.6 x10^3/uL (0.0-1.1) Eosinophils # (Auto) 0.1 x10^3/uL (0.0-0.7) Basophils # (Auto) 0.0 x10^3/uL (0.0-0.2) Sodium Level 139 mmol/L (136-145) Potassium Level 3.3 mmol/L (3.5-5.1) Chloride Level 102 mmol/L (98-107) Carbon Dioxide Level 30 mmol/L (21-32) Anion Gap 7 (6-14) Blood Urea Nitrogen 15 mg/dL (7-20) Creatinine 0.7 mg/dL (0.6-1.0) Estimated GFR (Cockcroft-Gault) 100.4 BUN/Creatinine Ratio 21 (6-20) Glucose Level 112 mg/dL (70-99) Calcium Level 9.5 mg/dL (8.5-10.1) Total Bilirubin 0.4 mg/dL (0.2-1.0) Aspartate Amino Transf (AST/SGOT) 24 U/L (15-37) Alanine Aminotransferase (ALT/SGPT) 34 U/L (14-59) Alkaline Phosphatase 86 U/L (46-116) Total Protein 7.8 g/dL (6.4-8.2) Albumin 4.1 g/dL (3.4-5.0) Albumin/Globulin Ratio 1.1 (1.0-1.7) Lipase 136 U/L (73-393) Laboratory Tests Test 02/22/19 00:52 02/22/19 00:56 02/22/19 01:00 Urine Collection Type Unknown Urine Color Yellow Urine Clarity Clear Urine pH 6.0 Urine Specific [place] 1.020 Urine Protein Negative mg/dL (NEG-TRACE) Urine Glucose (UA) Negative mg/dL (NEG) Urine Ketones (Stick) Negative mg/dL (NEG) Urine Blood Negative (NEG) Urine Nitrite Negative (NEG) Urine Bilirubin Negative (NEG) Urine Urobilinogen Dipstick 1.0 mg/dL (0.2 mg/dL) Urine Leukocyte Esterase Moderate (NEG) Urine RBC Rare /HPF (0-2) Urine WBC 20-40 /HPF (0-4) Urine Squamous Epithelial Cells Mod /LPF Urine Amorphous Sediment Present /HPF Urine Bacteria Few /HPF (0-FEW) Urine Mucus Mod /LPF Urine Sperm Present /HPF Bedside Urine HCG, Qualitative Hcg negative (Negative) White Blood Count 7.5 x10^3/uL (4.0-11.0) Red Blood Count 4.65 x10^6/uL (3.50-5.40) Hemoglobin 14.0 g/dL (12.0-15.5) Hematocrit 41.1 % (36.0-47.0) Mean Corpuscular Volume 88 fL (79-100) Mean Corpuscular Hemoglobin 30 pg (25-35) Mean Corpuscular Hemoglobin Concent 34 g/dL (31-37) Red Cell Distribution Width 14.5 % (11.5-14.5) Platelet Count 356 x10^3/uL (140-400) Neutrophils (%) (Auto) 68 % (31-73) Lymphocytes (%) (Auto) 22 % (24-48) Monocytes (%) (Auto) 8 % (0-9) Eosinophils (%) (Auto) 1 % (0-3) Basophils (%) (Auto) 0 % (0-3) Neutrophils # (Auto) 5.0 x10^3/uL (1.8-7.7) Lymphocytes # (Auto) 1.7 x10^3/uL (1.0-4.8) Monocytes # (Auto) 0.6 x10^3/uL (0.0-1.1) Eosinophils # (Auto) 0.1 x10^3/uL (0.0-0.7) Basophils # (Auto) 0.0 x10^3/uL (0.0-0.2) Sodium Level 139 mmol/L (136-145) Potassium Level 3.3 mmol/L (3.5-5.1) Chloride Level 102 mmol/L (98-107) Carbon Dioxide Level 30 mmol/L (21-32) Anion Gap 7 (6-14) Blood Urea Nitrogen 15 mg/dL (7-20) Creatinine 0.7 mg/dL (0.6-1.0) Estimated GFR (Cockcroft-Gault) 100.4 BUN/Creatinine Ratio 21 (6-20) Glucose Level 112 mg/dL (70-99) Calcium Level 9.5 mg/dL (8.5-10.1) Total Bilirubin 0.4 mg/dL (0.2-1.0) Aspartate Amino Transf (AST/SGOT) 24 U/L (15-37) Alanine Aminotransferase (ALT/SGPT) 34 U/L (14-59) Alkaline Phosphatase 86 U/L (46-116) Total Protein 7.8 g/dL (6.4-8.2) Albumin 4.1 g/dL (3.4-5.0) Albumin/Globulin Ratio 1.1 (1.0-1.7) Lipase 136 U/L (73-393) Assessment/Plan Assessment/Plan acute appendicitis, plan for lap appy today AIME GARCIA MD 02/22/19 1054: CONSULT Assessment/Plan Assessment/Plan pt seen, interviewed and examined in the pre op holding area at bedside explained risks of appendectomy including but not limited to bleeding, infectio n, injury to abdominal contents with need for further surgical intervention, possible open procedure, possible normal appendix she will proceed Thanks for consult ANALI OJEDA APRN Feb 22, 2019 08:26 AIME GARCIA MD Feb 22, 2019 10:54
[2019-02-22] MEDS ORDERED: PROPOFOL 20 ML IV ONE (08:50)
[2019-02-22] MEDS ORDERED: LIDOCAINE 2% PF 5 ML VIAL. ONE (08:50)
[2019-02-22] MEDS ORDERED: fentaNYL PF VIAL 100 MCG/2 ML VIAL ONE (08:51)
[2019-02-22] MEDS ORDERED: ROCURONIUM 50 MG/5 ML VIAL. ONE (08:51)
[2019-02-22] MEDS ORDERED: SUCCINYLCHOLINE 200 MG/10 ML VIAL. ONE (08:51)
--- NOTE | 2019-02-22 09:08 | PDOC1 ---
History and Physical Date of Admission Date of Admission DATE: 02/22/19 TIME: 09:08 Identification/Chief Complaint Chief Complaint seen in er , 28 year old female presents acute onset right upper quadrant pain awakening her from sleep with nausea vomiting. Pain is cramping, rated moderate to severe and is nonradiating. Patient unable to find position of comfort or relief. No prior episodes. No fevers chills. No back pain, flank pain, diarrhea. No urinary frequency urgency or dysuria. No hematuria or history of kidney stones. History of Present Illness History of Present Illness Date: Feb 22, 2019 Pre-Op Diagnosis acute appendicitis Post-Op Diagnosis same Procedure Performed laprascopic appendectomy Surgeon Hernan Filler In Shiv ORTEGA Anesthesia Type: General Blood Loss 10cc IV Fluid 1000cc Specimens Obtained 100cc Findings acute appendicitis without evidence of rupture Past Medical History Past Medical History Past Medical History Past Medical History Past Medical History: Migraines Additional Past Medical Histor: BILATERAL THYROID MASSES, GESTATIONAL DM Past Surgical History: Alcohol Use: Occasionally Drug Use: None Past Surgical History Past Surgical History: (x2) Family History Family History: Hypertension, Other (noncontributory to current illness ) Social History Smoke: No ALCOHOL: rare Drugs: None Current Problem List Problem List Problems Medical Problems: (1) Acute appendicitis Status: Acute Current Medications Current Medications Current Medications Ondansetron HCl (Zofran) 8 mg 1X ONCE IVP Last administered on 02/22/19at 01:32; Start 02/22/19 at 02:00; Stop 02/22/19 at 02:01; Status DC Famotidine (Pepcid Vial) 20 mg 1X ONCE IVP Last administered on 02/22/19at 01:32; Start 02/22/19 at 02:00; Stop 02/22/19 at 02:01; Status DC Morphine Sulfate (Morphine Sulfate) 4 mg 1X ONCE IV Last administered on 02/22/19at 02:09; Start 02/22/19 at 02:30; Stop 02/22/19 at 02:31; Status DC Morphine Sulfate (Morphine Sulfate) 4 mg 1X ONCE IV Last administered on 02/22/19at 02:53; Start 02/22/19 at 03:00; Stop 02/22/19 at 03:01; Status DC Iohexol (Omnipaque 300 Mg/ml) 75 ml 1X ONCE IV Last administered on 02/22/19at 03:11; Start 02/22/19 at 03:30; Stop 02/22/19 at 03:31; Status DC Info (CONTRAST GIVEN -- Rx MONITORING) 1 each PRN DAILY PRN MC SEE COMMENTS; Start 02/22/19 at 03:15; Stop 02/24/19 at 03:14 Cefepime HCl (Maxipime) 2 gm 1X ONCE IVP Last administered on 02/22/19at 03:59; Start 02/22/19 at 04:30; Stop 02/22/19 at 04:31; Status DC Ondansetron HCl (Zofran) 4 mg 1X ONCE IVP Last administered on 02/22/19at 05:00; Start 02/22/19 at 05:30; Stop 02/22/19 at 05:31; Status DC Ketorolac Tromethamine (Toradol 15mg Vial) 15 mg 1X ONCE IVP Last administered on 02/22/19at 05:37; Start 02/22/19 at 06:00; Stop 02/22/19 at 06:01; Status DC Ondansetron HCl (Zofran) 4 mg PRN Q8HRS PRN IV NAUSEA/VOMITING 1ST CHOICE; Start 02/22/19 at 05:45; Stop 02/23/19 at 05:44 Morphine Sulfate (Morphine Sulfate) 4 mg PRN Q2HR PRN IV SEVERE PAIN 7-10 Last administered on 02/22/19at 07:19; Start 02/22/19 at 05:45; Stop 02/23/19 at 05:44 Sodium Chloride 1,000 ml @ 125 mls/hr Q8H IV Last administered on 02/22/19at 05:49; Start 02/22/19 at 06:00; Stop 02/23/19 at 05:59 Ondansetron HCl (Zofran) 4 mg PRN Q6HRS PRN IV NAUSEA/VOMITING; Start 02/22/19 at 07:15; Stop 02/23/19 at 07:14 Fentanyl Citrate (Fentanyl 2ml Vial) 25 mcg PRN Q5MIN PRN IV MILD PAIN 1-3; Start 02/22/19 at 07:15; Stop 02/23/19 at 07:14 Fentanyl Citrate (Fentanyl 2ml Vial) 50 mcg PRN Q5MIN PRN IV MODERATE TO SEVERE PAIN; Start 02/22/19 at 07:15; Stop 02/23/19 at 07:14 Morphine Sulfate (Morphine Sulfate) 1 mg PRN Q10MIN PRN IV SEVERE PAIN 7-10; Start 02/22/19 at 07:15; Stop 02/23/19 at 07:14 Ringer's Solution 1,000 ml @ 30 mls/hr Q24H IV ; Start 02/22/19 at 07:09; Stop 02/22/19 at 19:08 Hydromorphone HCl (Dilaudid) 0.5 mg PRN Q10MIN PRN IV SEV PAIN, Second choice; Start 02/22/19 at 07:15; Stop 02/23/19 at 07:14 Prochlorperazine Edisylate (Compazine) 5 mg PACU PRN PRN IV NAUSEA, MRX1; Start 02/22/19 at 07:15; Stop 02/23/19 at 07:14 Cefazolin Sodium/ Dextrose 50 ml @ 100 mls/hr 1X ONCE IV ; Start 02/22/19 at 08:30; Stop 02/22/19 at 08:59; Status DC Metronidazole 100 ml @ 100 mls/hr 1X ONCE IV ; Start 02/22/19 at 08:30; Stop 02/22/19 at 09:29 Propofol 20 ml @ As Directed STK-MED ONCE IV ; Start 02/22/19 at 08:50; Stop 02/22/19 at 08:50; Status DC Lidocaine HCl (Lidocaine Pf 2% Vial) 5 ml STK-MED ONCE .ROUTE ; Start 02/22/19 at 08:50; Stop 02/22/19 at 08:50; Status DC Succinylcholine Chloride (Anectine) 200 mg STK-MED ONCE .ROUTE ; Start 02/22/19 at 08:51; Stop 02/22/19 at 08:51; Status DC Rocuronium Agency (Zemuron) 50 mg STK-MED ONCE .ROUTE ; Start 02/22/19 at 08:51; Stop 02/22/19 at 08:51; Status DC Fentanyl Citrate (Fentanyl 2ml Vial) 100 mcg STK-MED ONCE .ROUTE ; Start 02/22/19 at 08:51; Stop 02/22/19 at 08:51; Status DC Active Scripts Active Bactrim Ds Tablet (Sulfamethoxazole/Trimethoprim) 1 Each Tablet 1 Tab PO BID Zofran Odt (Ondansetron) 4 Mg Tab.rapdis 1 Tab SL Q8HRS Allergies Allergies: Coded Allergies: No Known Drug Allergies (Unverified , 07/10/16) ROS General: No: Chills, Night Sweats, Fatigue, Malaise, Appetite, Other PSYCHOLOGICAL ROS: No: Anxiety, Behavioral Disorder, Concentration difficultie, Decreased libido, Depression, Disorientation, Hallucinations, Hostility, Irritablity, Memory difficulties, Mood Swings, Obsessive thoughts, Physical abuse, Sexual abuse, Sleep disturbances, Suicidal ideation, Other HEENT: No: Heacaches, Visual Changes, Hearing change, Nasal congestion, Nasal discharge, Oral lesions, Sinus pain, Sore Throat, Epistaxis, Sneezing, Snoring, Tinnitus, Vertigo, Vocal changes, Other ALLERGY AND IMMUNOLOGY: No: Hives, Insect Bite Sensitivity, Itchy/Watery Eyes, Nasal Congestion, Post Nasal Drip, Seasonal Allergies, Other Hematological and Lymphatic: No: Bleeding Problems, Blood Clots, Blood Transfusions, Brusing, Night Sweats, Pallor, Swollen Lymph Nodes, Other ENDOCRINE: No: Breast Changes, Galactorrhea, Hair Pattern Changes, Hot Flashes, Malaise/lethargy, Mood Swings, Palpitations, Polydipsia/polyuria, Skin Changes, Temperature Intolerance, Unexpected Weight Changes, Other Breast: No New/Changing Breast Lumps, No Nipple changes, No Nipple discharge, No Other Respiratory: No: Cough, Hemoptysis, Orthopnea, Pleuritic Pain, Shortness of breath, SOB with excertion, Sputum Changes, Stridor, Tachypnea, Wheezing, Other Cardiovascular: No Chest Pain, No Palpitations, No Orthopnea, No Paroxysmal Noc. Dyspnea, No Edema, No Lt Headedness, No Other Gastrointestinal: Yes Nausea, Yes Abdominal Pain; No Vomiting, No Diarrhea, No Constipation, No Melena, No Hematochezia, No Other Genitourinary: No Dysuria, No Frequency, No Incontinence, No Hematuria, No Retention, No Discharge, No Urgency, No Pain, No Flank Pain, No Other, No , No , No , No , No , No , No Musculoskeletal: No Gait Disturbance, No Joint Pain, No Joint Stiffness, No Joint Swelling, No Muscle Pain, No Muscular Weakness, No Pain In:, No Swelling In:, No Other Neurological: No Behavorial Changes, No Bowel/Bladder ControlChng, No Confusion, No Dizziness, No Gait Disturbance, No Headaches, No Impaired Coord/balance, No Memory Loss, No Numbness/Tingling, No Seizures, No Speech Problems, No Tremors, No Visual Changes, No Weakness, No Other Skin: No Dry Skin, No Eczema, No Hair Changes, No Lumps, No Mole Changes, No Mottling, No Nail Changes, No Pruritus, No Rash, No Skin Lesion Changes, No Other, No Acne Physical Exam Physical Exam HENT: Normocephalic, atraumatic, bilateral external ears normal, oropharynx moist,nose normal. [] Eyes: PERRLA, EOMI, conjunctiva normal. [] Neck: Normal range of motion. [] Cardiovascular:Heart rate regular rhythm, no murmur [] Lungs & Thorax: Bilateral breath sounds clear to auscultation [] Abdomen: Bowel sounds normal, soft, RUQ pain/tenderness. [] Skin: Warm, dry, no erythema, no rash. [] Back: No tenderness, no CVA tenderness. [] Extremities: No tenderness, no edema. [] Neurologic: Alert and oriented X 3, normal motor function, normal sensory function, no focal deficits noted. [] Psychologic: Affect normal, judgement normal, mood normal. [] General: Alert, Oriented X3, Cooperative Lungs: Clear to auscultation Heart: RRR Breasts: Not examined Rectal Exam: not examined PELVIC: Examination not indicated Neuro: Normal speech, Cranial nerves 3-12 NL Psych/Mental Status: Mental status NL, Mood NL Vitals Vitals Vital Signs Date Time Temp Pulse Resp B/P (MAP) Pulse Ox O2 Delivery O2 Flow Rate FiO2 02/22/19 08:55 98.5 65 15 111/61 99 Room Air 98.5 Labs Labs Laboratory Tests Test 02/22/19 00:52 02/22/19 00:56 02/22/19 01:00 Urine Collection Type Unknown Urine Color Yellow Urine Clarity Clear Urine pH 6.0 Urine Specific [place] 1.020 Urine Protein Negative mg/dL (NEG-TRACE) Urine Glucose (UA) Negative mg/dL (NEG) Urine Ketones (Stick) Negative mg/dL (NEG) Urine Blood Negative (NEG) Urine Nitrite Negative (NEG) Urine Bilirubin Negative (NEG) Urine Urobilinogen Dipstick 1.0 mg/dL (0.2 mg/dL) Urine Leukocyte Esterase Moderate (NEG) Urine RBC Rare /HPF (0-2) Urine WBC 20-40 /HPF (0-4) Urine Squamous Epithelial Cells Mod /LPF Urine Amorphous Sediment Present /HPF Urine Bacteria Few /HPF (0-FEW) Urine Mucus Mod /LPF Urine Sperm Present /HPF Bedside Urine HCG, Qualitative Hcg negative (Negative) White Blood Count 7.5 x10^3/uL (4.0-11.0) Red Blood Count 4.65 x10^6/uL (3.50-5.40) Hemoglobin 14.0 g/dL (12.0-15.5) Hematocrit 41.1 % (36.0-47.0) Mean Corpuscular Volume 88 fL (79-100) Mean Corpuscular Hemoglobin 30 pg (25-35) Mean Corpuscular Hemoglobin Concent 34 g/dL (31-37) Red Cell Distribution Width 14.5 % (11.5-14.5) Platelet Count 356 x10^3/uL (140-400) Neutrophils (%) (Auto) 68 % (31-73) Lymphocytes (%) (Auto) 22 % (24-48) Monocytes (%) (Auto) 8 % (0-9) Eosinophils (%) (Auto) 1 % (0-3) Basophils (%) (Auto) 0 % (0-3) Neutrophils # (Auto) 5.0 x10^3/uL (1.8-7.7) Lymphocytes # (Auto) 1.7 x10^3/uL (1.0-4.8) Monocytes # (Auto) 0.6 x10^3/uL (0.0-1.1) Eosinophils # (Auto) 0.1 x10^3/uL (0.0-0.7) Basophils # (Auto) 0.0 x10^3/uL (0.0-0.2) Sodium Level 139 mmol/L (136-145) Potassium Level 3.3 mmol/L (3.5-5.1) Chloride Level 102 mmol/L (98-107) Carbon Dioxide Level 30 mmol/L (21-32) Anion Gap 7 (6-14) Blood Urea Nitrogen 15 mg/dL (7-20) Creatinine 0.7 mg/dL (0.6-1.0) Estimated GFR (Cockcroft-Gault) 100.4 BUN/Creatinine Ratio 21 (6-20) Glucose Level 112 mg/dL (70-99) Calcium Level 9.5 mg/dL (8.5-10.1) Total Bilirubin 0.4 mg/dL (0.2-1.0) Aspartate Amino Transf (AST/SGOT) 24 U/L (15-37) Alanine Aminotransferase (ALT/SGPT) 34 U/L (14-59) Alkaline Phosphatase 86 U/L (46-116) Total Protein 7.8 g/dL (6.4-8.2) Albumin 4.1 g/dL (3.4-5.0) Albumin/Globulin Ratio 1.1 (1.0-1.7) Lipase 136 U/L (73-393) Laboratory Tests Test 02/22/19 00:52 02/22/19 00:56 02/22/19 01:00 Urine Collection Type Unknown Urine Color Yellow Urine Clarity Clear Urine pH 6.0 Urine Specific [place] 1.020 Urine Protein Negative mg/dL (NEG-TRACE) Urine Glucose (UA) Negative mg/dL (NEG) Urine Ketones (Stick) Negative mg/dL (NEG) Urine Blood Negative (NEG) Urine Nitrite Negative (NEG) Urine Bilirubin Negative (NEG) Urine Urobilinogen Dipstick 1.0 mg/dL (0.2 mg/dL) Urine Leukocyte Esterase Moderate (NEG) Urine RBC Rare /HPF (0-2) Urine WBC 20-40 /HPF (0-4) Urine Squamous Epithelial Cells Mod /LPF Urine Amorphous Sediment Present /HPF Urine Bacteria Few /HPF (0-FEW) Urine Mucus Mod /LPF Urine Sperm Present /HPF Bedside Urine HCG, Qualitative Hcg negative (Negative) White Blood Count 7.5 x10^3/uL (4.0-11.0) Red Blood Count 4.65 x10^6/uL (3.50-5.40) Hemoglobin 14.0 g/dL (12.0-15.5) Hematocrit 41.1 % (36.0-47.0) Mean Corpuscular Volume 88 fL (79-100) Mean Corpuscular Hemoglobin 30 pg (25-35) Mean Corpuscular Hemoglobin Concent 34 g/dL (31-37) Red Cell Distribution Width 14.5 % (11.5-14.5) Platelet Count 356 x10^3/uL (140-400) Neutrophils (%) (Auto) 68 % (31-73) Lymphocytes (%) (Auto) 22 % (24-48) Monocytes (%) (Auto) 8 % (0-9) Eosinophils (%) (Auto) 1 % (0-3) Basophils (%) (Auto) 0 % (0-3) Neutrophils # (Auto) 5.0 x10^3/uL (1.8-7.7) Lymphocytes # (Auto) 1.7 x10^3/uL (1.0-4.8) Monocytes # (Auto) 0.6 x10^3/uL (0.0-1.1) Eosinophils # (Auto) 0.1 x10^3/uL (0.0-0.7) Basophils # (Auto) 0.0 x10^3/uL (0.0-0.2) Sodium Level 139 mmol/L (136-145) Potassium Level 3.3 mmol/L (3.5-5.1) Chloride Level 102 mmol/L (98-107) Carbon Dioxide Level 30 mmol/L (21-32) Anion Gap 7 (6-14) Blood Urea Nitrogen 15 mg/dL (7-20) Creatinine 0.7 mg/dL (0.6-1.0) Estimated GFR (Cockcroft-Gault) 100.4 BUN/Creatinine Ratio 21 (6-20) Glucose Level 112 mg/dL (70-99) Calcium Level 9.5 mg/dL (8.5-10.1) Total Bilirubin 0.4 mg/dL (0.2-1.0) Aspartate Amino Transf (AST/SGOT) 24 U/L (15-37) Alanine Aminotransferase (ALT/SGPT) 34 U/L (14-59) Alkaline Phosphatase 86 U/L (46-116) Total Protein 7.8 g/dL (6.4-8.2) Albumin 4.1 g/dL (3.4-5.0) Albumin/Globulin Ratio 1.1 (1.0-1.7) Lipase 136 U/L (73-393) Images Images CT abdomen and pelvis with contrast: Reason for examination: Upper abdominal pain. Helical images were obtained through the abdomen and pelvis with intravenous administration of 75 cc Omnipaque 300. Reconstruction was performed in sagittal and coronal planes. Exposure: One or more of the following individualized dose reduction techniques were utilized for this examination: 1. Automated exposure control 2. Adjustment of the mA and/or kV according to patient size 3. Use of iterative reconstruction technique. The lung bases are clear. The heart size is normal with no pericardial effusion. No abnormality seen at the liver, spleen, adrenal glands, gallbladder or pancreas. The abdominal aorta and inferior vena cava show no acute abnormalities. The colon shows no diverticulosis or diverticulitis or colitis. The appendix is distended at 1.3 cm with some periappendiceal stranding near the tip consistent with appendicitis. The colon shows no diverticulosis or diverticulitis or colitis. The small intestinal tract shows no abnormal dilatation or wall thickening. No abnormality seen at the stomach. The kidneys show no renal masses, renal calculi, hydronephrosis or obstructive uropathy. No abnormality seen at the bladder. IUD is present in the uterus. There appears to be fluid-filled structures in the adnexa bilaterally which may represent presence of hydrosalpinx, right greater than left. No gross abnormalities of seen at the ovaries. Small amount of free fluid may be present in the right adnexa. No acute bony abnormalities are evident. IMPRESSION: Distended appendix with periappendiceal inflammation consistent with acute appendicitis. Fluid-filled structures in the adnexa bilaterally, right greater than left which may represent hydrosalpinx. Small amount of fluid in the right adnexa. Electronically signed by: Mara Rojas MD (02/22/2019 3:32 AM) [facility] [id number] DICTATED and SIGNED BY: MARA ROJAS MD DATE: 02/22/19 0332 VTE Prophylaxis Ordered VTE Prophylaxis Devices: No VTE Pharmacological Prophylaxi: Yes Assessment/Plan Assessment/Plan IMPRESSION acute appendicitis Distended appendix with periappendiceal inflammation consistent with acute appendicitis.by ct Obesity PLAN ADMIT CONSULT DR GARCIA npo iv fluid support laprascopic appendectomy NADYA NOLASCO MD Feb 22, 2019 09:08
[2019-02-22] MEDS ORDERED: BUPIVACAINE-EPI 0.5%-1:200000 MPF 30 ML VIAL. ONE (09:22)
[2019-02-22] MEDS ORDERED: PHENYLEPHRINE in 0.9% NACL PF 1 MG/10 ML SYRINGE. IV ONE (09:56)
[2019-02-22] MEDS ORDERED: GLYCOPYRROLATE 1 MG/5 ML VIAL. ONE (10:07)
[2019-02-22] MEDS ORDERED: SEVOFLURANE 61 TO 120 MINUTES. IH ONE (10:17)
[2019-02-22] MEDS ORDERED: NEOSTIGMINE METHYLSULFATE 5 MG/5 ML SYRINGE. ONE (10:28)
[2019-02-22] MEDS ORDERED: diphenhydrAMINE 50 MG/ML VIAL ONE (10:32)
[2019-02-22] MEDS ORDERED: DEXTROSE 50% 25 GM / 50ML DISP.SYRIN. IV PRN (10:45)
[2019-02-22] MEDS ORDERED: 0.9 % SODIUM CHLORIDE 10 ML DISP.SYRIN. IV PRN (10:45)
[2019-02-22] MEDS ORDERED: ONDANSETRON PF 4 MG/2 ML VIAL. IVP PRN (10:45)
[2019-02-22] MEDS ORDERED: oxyCODONE/APAP 5/325 1 TAB TABLET PO PRN (10:45)
[2019-02-22] MEDS ORDERED: NALOXONE 0.4 MG/ML VIAL. IV PRN (10:45)
[2019-02-22] MEDS ORDERED: IV DEXTROSE 5% 250 ML BAG. IV PRN (10:45)
--- NOTE | 2019-02-22 10:57 | PDOC ---
BRIEF OPERATIVE NOTE Date: Feb 22, 2019 Pre-Op Diagnosis acute appendicitis Post-Op Diagnosis same Procedure Performed laprascopic appendectomy Surgeon Hernan Photography Teacher Shiv ORTEGA Anesthesia Type: General Blood Loss 10cc IV Fluid 1000cc Specimens Obtained 100cc Findings acute appendicitis without evidence of rupture Complications none AIME GARCIA MD Feb 22, 2019 10:57
[2019-02-22] MEDS: POTASSIUM CL 20MEQ-0.45% NACL 1,000 ML IV SCH ×2 (12:32→23:02)
--- NOTE | 2019-02-22 12:35 | OP ---
DATE OF SURGERY: 02/22/2019 PREOPERATIVE DIAGNOSIS: Acute appendicitis. POSTOPERATIVE DIAGNOSIS: Acute appendicitis. PROCEDURE: Laparoscopic appendectomy. SURGEON: Mitch Becerra MD CUSTOMER SERVICE ADVISOR: SHANNON Chang ANESTHESIA: General endotracheal. ESTIMATED BLOOD LOSS: 10 mL. INTRAVENOUS FLUIDS: A liter. URINE OUTPUT: 100 mL. INDICATIONS: The patient is a 28-year-old with right lower quadrant pain and a CT consistent with appendicitis, brought for appendectomy. OPERATIVE FINDINGS: She did indeed have an acute appendicitis without evidence of rupture. Visual inspection of the remainder of the abdomen (including the gallbladder) failed to reveal evidence of any pathology. DESCRIPTION OF PROCEDURE: The patient brought to the operating suite, given a general endotracheal anesthetic, a Cook placed to dependent drainage and the abdomen was prepped and draped in usual sterile fashion. A supraumbilical incision was infiltrated with local anesthetic, incised and a 5 mm Visiport used to safely gain access into the abdominal cavity, taking care to avoid injury to abdominal contents. Pneumoperitoneum established. Camera inserted. Inspection carried out with results as noted above. Under direct vision, the suprapubic and left lower quadrant ports were placed in the supraumbilical port converted to 12 mm for instrumentation. The appendix was grasped through the suprapubic port and a small rent created at the base of the appendix to allow passage of the Endo-MADINA with a tissue load to amputate the base of the appendix. Hemostasis augmented with medium large clips. The mesoappendix was then divided with a vascular load x 2. Some bleeding from the mesoappendix was controlled with an Endoloop ligature. Intra-abdominal pressure decreased to 6 cm of water. No bleeding from the appendiceal stump or from the mesoappendix was seen. Appendix delivered through the supraumbilical port site, which was then closed with 0 Vicryl suture. Again, at 6 cm of water, no bleeding from the umbilical port site or from the left lower quadrant port site after its removal. Abdomen decompressed, camera slowly removed, no bleeding seen. Skin incisions closed with subcuticular 4-0 Monocryl. Steri-Strips and sterile dressings applied. Cook catheter removed. The patient awakened from her anesthetic and taken to the recovery room in satisfactory condition. MITCH V. JOSE, MD DR: SHEREEN/tamanna JOB#: [id number] / [id number]
[2019-02-22] MEDS ORDERED: PROMETHAZINE 12.5 MG TABLET. PO PRN (16:15)
[2019-02-22] MEDS: oxyCODONE/APAP 5/325 1 TAB TABLET PO PRN (16:29)
[2019-02-22] MEDS: DOCUSATE SODIUM 100 MG CAPSULE. PO SCH (19:50)
[2019-02-22] MEDS ORDERED: ENOXAPARIN 40 MG/0.4 ML SYRINGE. SQ SCH (22:00)
[2019-02-23] VITALS (9 sets, daily range): BP systolic 63–108; BP diastolic 25–67
[2019-02-23] MEDS: IV NORMAL SALINE 1000ML BAG 1,000 ML IV SCH (06:29)
[2019-02-23] MEDS: DOCUSATE SODIUM 100 MG CAPSULE. PO SCH (08:43)
--- NOTE | 2019-02-23 10:55 | PDOC ---
PROGRESS NOTES History of Present Illness History of Present Illness VTE Prophylaxis Ordered VTE Prophylaxis Devices: No VTE Pharmacological Prophylaxi: Yes DISCHARGE DX Assessment/Plan IMPRESSION acute appendicitis Distended appendix with periappendiceal inflammation consistent with acute appendicitis.by ct Obesity HYPOTENSION, VOLUME DEPLETED PLAN ADMIT CONSULT DR GARCIA npo iv fluid support laprascopic appendectomy 1 LITER NS BOLUS IF BP BETTER HOME TODAY LATER D/C PLANNING 24 MIN Vitals Vitals Vital Signs Date Time Temp Pulse Resp B/P (MAP) Pulse Ox O2 Delivery O2 Flow Rate FiO2 02/23/19 08:00 Room Air 02/23/19 07:00 98.2 65 16 104/60 (75) 94 98.2 02/22/19 11:10 8 Physical Exam General: Alert, Oriented X3, Cooperative Heart: Regular rate, Normal S1, Normal S2 Abdomen: Soft, Other (diffusely tender, guarding to RLQ ) Extremities: No clubbing, No cyanosis Skin: No rashes, No breakdown Assessment and Plan Assessmemt and Plan Problems Medical Problems: (1) Acute appendicitis Status: Acute Comment Review of Relevant I have reviewed the following items pat (where applicable) has been applied. Labs Laboratory Tests Test 02/22/19 00:52 02/22/19 00:56 02/22/19 01:00 Urine Collection Type Unknown Urine Color Yellow Urine Clarity Clear Urine pH 6.0 Urine Specific [place] 1.020 Urine Protein Negative mg/dL (NEG-TRACE) Urine Glucose (UA) Negative mg/dL (NEG) Urine Ketones (Stick) Negative mg/dL (NEG) Urine Blood Negative (NEG) Urine Nitrite Negative (NEG) Urine Bilirubin Negative (NEG) Urine Urobilinogen Dipstick 1.0 mg/dL (0.2 mg/dL) Urine Leukocyte Esterase Moderate (NEG) Urine RBC Rare /HPF (0-2) Urine WBC 20-40 /HPF (0-4) Urine Squamous Epithelial Cells Mod /LPF Urine Amorphous Sediment Present /HPF Urine Bacteria Few /HPF (0-FEW) Urine Mucus Mod /LPF Urine Sperm Present /HPF Bedside Urine HCG, Qualitative Hcg negative (Negative) White Blood Count 7.5 x10^3/uL (4.0-11.0) Red Blood Count 4.65 x10^6/uL (3.50-5.40) Hemoglobin 14.0 g/dL (12.0-15.5) Hematocrit 41.1 % (36.0-47.0) Mean Corpuscular Volume 88 fL (79-100) Mean Corpuscular Hemoglobin 30 pg (25-35) Mean Corpuscular Hemoglobin Concent 34 g/dL (31-37) Red Cell Distribution Width 14.5 % (11.5-14.5) Platelet Count 356 x10^3/uL (140-400) Neutrophils (%) (Auto) 68 % (31-73) Lymphocytes (%) (Auto) 22 % (24-48) Monocytes (%) (Auto) 8 % (0-9) Eosinophils (%) (Auto) 1 % (0-3) Basophils (%) (Auto) 0 % (0-3) Neutrophils # (Auto) 5.0 x10^3/uL (1.8-7.7) Lymphocytes # (Auto) 1.7 x10^3/uL (1.0-4.8) Monocytes # (Auto) 0.6 x10^3/uL (0.0-1.1) Eosinophils # (Auto) 0.1 x10^3/uL (0.0-0.7) Basophils # (Auto) 0.0 x10^3/uL (0.0-0.2) Sodium Level 139 mmol/L (136-145) Potassium Level 3.3 mmol/L (3.5-5.1) Chloride Level 102 mmol/L (98-107) Carbon Dioxide Level 30 mmol/L (21-32) Anion Gap 7 (6-14) Blood Urea Nitrogen 15 mg/dL (7-20) Creatinine 0.7 mg/dL (0.6-1.0) Estimated GFR (Cockcroft-Gault) 100.4 BUN/Creatinine Ratio 21 (6-20) Glucose Level 112 mg/dL (70-99) Calcium Level 9.5 mg/dL (8.5-10.1) Total Bilirubin 0.4 mg/dL (0.2-1.0) Aspartate Amino Transf (AST/SGOT) 24 U/L (15-37) Alanine Aminotransferase (ALT/SGPT) 34 U/L (14-59) Alkaline Phosphatase 86 U/L (46-116) Total Protein 7.8 g/dL (6.4-8.2) Albumin 4.1 g/dL (3.4-5.0) Albumin/Globulin Ratio 1.1 (1.0-1.7) Lipase 136 U/L (73-393) Medications Current Medications Ondansetron HCl (Zofran) 8 mg 1X ONCE IVP Last administered on 02/22/19at 01:32; Start 02/22/19 at 02:00; Stop 02/22/19 at 02:01; Status DC Famotidine (Pepcid Vial) 20 mg 1X ONCE IVP Last administered on 02/22/19at 01:32; Start 02/22/19 at 02:00; Stop 02/22/19 at 02:01; Status DC Morphine Sulfate (Morphine Sulfate) 4 mg 1X ONCE IV Last administered on 02/22/19at 02:09; Start 02/22/19 at 02:30; Stop 02/22/19 at 02:31; Status DC Morphine Sulfate (Morphine Sulfate) 4 mg 1X ONCE IV Last administered on 02/22/19at 02:53; Start 02/22/19 at 03:00; Stop 02/22/19 at 03:01; Status DC Iohexol (Omnipaque 300 Mg/ml) 75 ml 1X ONCE IV Last administered on 02/22/19at 03:11; Start 02/22/19 at 03:30; Stop 02/22/19 at 03:31; Status DC Info (CONTRAST GIVEN -- Rx MONITORING) 1 each PRN DAILY PRN MC SEE COMMENTS; Start 02/22/19 at 03:15; Stop 02/24/19 at 03:14 Cefepime HCl (Maxipime) 2 gm 1X ONCE IVP Last administered on 02/22/19at 03:59; Start 02/22/19 at 04:30; Stop 02/22/19 at 04:31; Status DC Ondansetron HCl (Zofran) 4 mg 1X ONCE IVP Last administered on 02/22/19at 05:00; Start 02/22/19 at 05:30; Stop 02/22/19 at 05:31; Status DC Ketorolac Tromethamine (Toradol 15mg Vial) 15 mg 1X ONCE IVP Last administered on 02/22/19at 05:37; Start 02/22/19 at 06:00; Stop 02/22/19 at 06:01; Status DC Ondansetron HCl (Zofran) 4 mg PRN Q8HRS PRN IV NAUSEA/VOMITING 1ST CHOICE Last administered on 02/22/19at 12:29; Start 02/22/19 at 05:45; Stop 02/23/19 at 05:44; Status DC Morphine Sulfate (Morphine Sulfate) 4 mg PRN Q2HR PRN IV SEVERE PAIN 7-10 Last administered on 02/22/19at 07:19; Start 02/22/19 at 05:45; Stop 02/23/19 at 05:44; Status DC Sodium Chloride 1,000 ml @ 125 mls/hr Q8H IV Last administered on 02/22/19at 05:49; Start 02/22/19 at 06:00; Stop 02/23/19 at 05:59; Status DC Ondansetron HCl (Zofran) 4 mg PRN Q6HRS PRN IV NAUSEA/VOMITING; Start 02/22/19 at 07:15; Stop 02/23/19 at 07:14; Status DC Fentanyl Citrate (Fentanyl 2ml Vial) 25 mcg PRN Q5MIN PRN IV MILD PAIN 1-3; Start 02/22/19 at 07:15; Stop 02/23/19 at 07:14; Status DC Fentanyl Citrate (Fentanyl 2ml Vial) 50 mcg PRN Q5MIN PRN IV MODERATE TO SEVERE PAIN; Start 02/22/19 at 07:15; Stop 02/23/19 at 07:14; Status DC Morphine Sulfate (Morphine Sulfate) 1 mg PRN Q10MIN PRN IV SEVERE PAIN 7-10; Start 02/22/19 at 07:15; Stop 02/23/19 at 07:14; Status DC Ringer's Solution 1,000 ml @ 30 mls/hr Q24H IV ; Start 02/22/19 at 07:09; Stop 02/22/19 at 19:08; Status DC Hydromorphone HCl (Dilaudid) 0.5 mg PRN Q10MIN PRN IV SEV PAIN, Second choice; Start 02/22/19 at 07:15; Stop 02/23/19 at 07:14; Status DC Prochlorperazine Edisylate (Compazine) 5 mg PACU PRN PRN IV NAUSEA, MRX1; Start 02/22/19 at 07:15; Stop 02/23/19 at 07:14; Status DC Cefazolin Sodium/ Dextrose 50 ml @ 100 mls/hr 1X ONCE IV Last administered on 02/22/19at 09:39; Start 02/22/19 at 08:30; Stop 02/22/19 at 08:59; Status DC Metronidazole 100 ml @ 100 mls/hr 1X ONCE IV Last administered on 02/22/19at 09:45; Start 02/22/19 at 08:30; Stop 02/22/19 at 09:29; Status DC Propofol 20 ml @ As Directed STK-MED ONCE IV ; Start 02/22/19 at 08:50; Stop 02/22/19 at 08:50; Status DC Lidocaine HCl (Lidocaine Pf 2% Vial) 5 ml STK-MED ONCE .ROUTE ; Start 02/22/19 at 08:50; Stop 02/22/19 at 08:50; Status DC Succinylcholine Chloride (Anectine) 200 mg STK-MED ONCE .ROUTE ; Start 02/22/19 at 08:51; Stop 02/22/19 at 08:51; Status DC Rocuronium [place] (Zemuron) 50 mg STK-MED ONCE .ROUTE ; Start 02/22/19 at 08:51; Stop 02/22/19 at 08:51; Status DC Fentanyl Citrate (Fentanyl 2ml Vial) 100 mcg STK-MED ONCE .ROUTE ; Start 02/22/19 at 08:51; Stop 02/22/19 at 08:51; Status DC Bupivacaine HCl/ Epinephrine Bitart (Sensorcain-Epi 0.5%-1:[id number] Mpf) 30 ml STK-MED ONCE .ROUTE Last administered on 02/22/19at 10:06; Start 02/22/19 at 09:22; Stop 02/22/19 at 09:22; Status DC Phenylephrine HCl (PHENYLEPHRINE in 0.9% NACL PF) 1 mg STK-MED ONCE IV ; Start 02/22/19 at 09:56; Stop 02/22/19 at 09:56; Status DC Glycopyrrolate (Robinul) 1 mg STK-MED ONCE .ROUTE ; Start 02/22/19 at 10:07; Stop 02/22/19 at 10:07; Status DC Sevoflurane (Ultane) 60 ml STK-MED ONCE IH ; Start 02/22/19 at 10:17; Stop 02/22/19 at 10:17; Status DC Neostigmine [place] (Neostigmine Methylsulfate) 5 mg STK-MED ONCE .ROUTE ; Start 02/22/19 at 10:28; Stop 02/22/19 at 10:28; Status DC Diphenhydramine HCl (Benadryl) 50 mg STK-MED ONCE .ROUTE ; Start 02/22/19 at 10:32; Stop 02/22/19 at 10:32; Status DC Sodium Chloride (Normal Saline Flush) 3 ml QSHIFT PRN IV AFTER MEDS AND BLOOD DRAWS; Start 02/22/19 at 10:45 Potassium Chloride/Sodium Chloride 1,000 ml @ 75 mls/hr [id number] IV Last administered on 02/22/19at 23:02; Start 02/22/19 at 11:30 Dextrose (Dextrose 50%-Water Syringe) 12.5 gm PRN Q15MIN PRN IV SEE COMMENTS; Start 02/22/19 at 10:45 Dextrose (Iv Dextrose 5%) 250 ml PRN Q15MIN PRN IV SEE COMMENTS; Start 02/22/19 at 10:45 Oxycodone/ Acetaminophen (Percocet 5/325) 1 tab PRN Q4HRS PRN PO MILD PAIN, 1ST CHOICE Last administered on 02/22/19at 12:29; Start 02/22/19 at 10:45 Oxycodone/ Acetaminophen (Percocet 5/325) 2 tab PRN Q4HRS PRN PO MODERATE PAIN, SEVERE PAIN Last administered on 02/22/19at 16:29; Start 02/22/19 at 10:45 Naloxone HCl (Narcan) 0.4 mg PRN Q2MIN PRN IV SEE INSTRUCTIONS; Start 02/22/19 at 10:45 Sodium Chloride 1,000 ml @ 25 mls/hr Q24H IV ; Start 02/22/19 at 10:44 Hydromorphone HCl (Dilaudid) 1 mg Q3HRS PRN IV PAIN Last administered on 02/22/19at 15:59; Start 02/22/19 at 10:45 Docusate Sodium (Colace) 100 mg BID PO Last administered on 02/23/19at 08:43; Start 02/22/19 at 21:00 Ondansetron HCl (Zofran) 4 mg PRN Q6HRS PRN IVP Nausea, 2nd Choice; Start 02/22/19 at 10:45 Promethazine HCl (Phenergan) 25 mg PRN Q6HRS PRN PO NAUSEA/VOMITING Last administered on 02/22/19at 16:29; Start 02/22/19 at 16:15 Prochlorperazine Edisylate (Compazine) 10 mg PRN Q8HRS PRN IV NAUSEA/VOMITING Last administered on 02/22/19at 19:50; Start 02/22/19 at 19:30 Enoxaparin Sodium (Lovenox 40mg Syringe) 40 mg Q24H SQ Last administered on 02/22/19at 23:00; Start 02/22/19 at 22:00 Active Scripts Active Bactrim Ds Tablet (Sulfamethoxazole/Trimethoprim) 1 Each Tablet 1 Tab PO BID Zofran Odt (Ondansetron) 4 Mg Tab.rapdis 1 Tab SL Q8HRS Vitals/I & O Vital Sign - Last 24 Hours 02/22/19 02/22/19 02/22/19 02/22/19 10:55 10:55 11:10 11:25 Temp 98.0 98.0 98.0 98.0 Pulse 82 74 68 Resp 16 20 18 B/P (MAP) 128/66 106/62 106/62 Pulse Ox 100 100 96 O2 Delivery Simple Mask Mask Simple Mask Room Air O2 Flow Rate 8 8 8 02/22/19 02/22/19 02/22/19 02/22/19 11:31 12:29 12:54 13:09 Pulse 69 69 B/P (MAP) 120/66 (84) 110/60 (77) Pulse Ox 97 97 O2 Delivery Room Air Room Air 02/22/19 02/22/19 02/22/19 02/22/19 13:24 13:30 13:38 14:09 Pulse 72 B/P (MAP) 109/56 (73) 107/58 (74) 107/58 (74) Pulse Ox 97 O2 Delivery Room Air 02/22/19 02/22/19 02/22/19 02/22/19 14:38 15:00 15:59 16:29 Pulse 75 94 Resp 16 B/P (MAP) 104/58 (73) 112/61 (78) Pulse Ox 96 95 O2 Delivery Room Air Room Air Room Air 02/22/19 02/22/19 02/22/19 02/22/19 16:34 17:30 19:15 19:50 Temp 97.8 97.8 Pulse 89 Resp 16 B/P (MAP) 95/60 (72) Pulse Ox 96 O2 Delivery Room Air Room Air Room Air Room Air 02/22/19 02/23/19 02/23/19 02/23/19 23:19 03:00 04:08 05:19 Temp 98.4 98.2 98.4 98.2 Pulse 73 67 63 76 Resp 18 18 B/P (MAP) 90/46 (61) 63/25 (38) 85/46 (59) 98/54 (69) Pulse Ox 94 99 94 94 O2 Delivery Room Air Room Air Room Air Room Air 02/23/19 02/23/19 07:00 08:00 Temp 98.2 98.2 Pulse 65 Resp 16 B/P (MAP) 104/60 (75) Pulse Ox 94 O2 Delivery Room Air Room Air Intake and Output 02/22/19 02/22/19 02/23/19 15:00 23:00 07:00 Intake Total 1550 ml 700 ml 1360 ml Output Total 110 ml Balance 1440 ml 700 ml 1360 ml NADYA NOLASCO MD Feb 23, 2019 10:55
--- NOTE | 2019-02-23 11:36 | PDOC ---
SURGICAL PROGRESS NOTE Subjective feels ok would like to go home Vital Signs Vital Signs Date Time Temp Pulse Resp B/P (MAP) Pulse Ox O2 Delivery O2 Flow Rate FiO2 02/23/19 08:00 Room Air 02/23/19 07:00 98.2 65 16 104/60 (75) 94 98.2 02/22/19 11:10 8 I&O Intake and Output 02/23/19 07:00 Intake Total 3610 ml Output Total 110 ml Balance 3500 ml Intake Oral 1060 ml IV Total 2550 ml Output Urine Total 100 ml Estimated Blood Loss 10 ml # Voids 5 PATIENT HAS A VERA: No General: Alert, Oriented X3 Abdomen: Soft, No tenderness Labs Laboratory Tests Test 02/22/19 00:52 02/22/19 00:56 02/22/19 01:00 Urine Collection Type Unknown Urine Color Yellow Urine Clarity Clear Urine pH 6.0 Urine Specific [place] 1.020 Urine Protein Negative mg/dL (NEG-TRACE) Urine Glucose (UA) Negative mg/dL (NEG) Urine Ketones (Stick) Negative mg/dL (NEG) Urine Blood Negative (NEG) Urine Nitrite Negative (NEG) Urine Bilirubin Negative (NEG) Urine Urobilinogen Dipstick 1.0 mg/dL (0.2 mg/dL) Urine Leukocyte Esterase Moderate (NEG) Urine RBC Rare /HPF (0-2) Urine WBC 20-40 /HPF (0-4) Urine Squamous Epithelial Cells Mod /LPF Urine Amorphous Sediment Present /HPF Urine Bacteria Few /HPF (0-FEW) Urine Mucus Mod /LPF Urine Sperm Present /HPF Bedside Urine HCG, Qualitative Hcg negative (Negative) White Blood Count 7.5 x10^3/uL (4.0-11.0) Red Blood Count 4.65 x10^6/uL (3.50-5.40) Hemoglobin 14.0 g/dL (12.0-15.5) Hematocrit 41.1 % (36.0-47.0) Mean Corpuscular Volume 88 fL (79-100) Mean Corpuscular Hemoglobin 30 pg (25-35) Mean Corpuscular Hemoglobin Concent 34 g/dL (31-37) Red Cell Distribution Width 14.5 % (11.5-14.5) Platelet Count 356 x10^3/uL (140-400) Neutrophils (%) (Auto) 68 % (31-73) Lymphocytes (%) (Auto) 22 % (24-48) Monocytes (%) (Auto) 8 % (0-9) Eosinophils (%) (Auto) 1 % (0-3) Basophils (%) (Auto) 0 % (0-3) Neutrophils # (Auto) 5.0 x10^3/uL (1.8-7.7) Lymphocytes # (Auto) 1.7 x10^3/uL (1.0-4.8) Monocytes # (Auto) 0.6 x10^3/uL (0.0-1.1) Eosinophils # (Auto) 0.1 x10^3/uL (0.0-0.7) Basophils # (Auto) 0.0 x10^3/uL (0.0-0.2) Sodium Level 139 mmol/L (136-145) Potassium Level 3.3 mmol/L (3.5-5.1) Chloride Level 102 mmol/L (98-107) Carbon Dioxide Level 30 mmol/L (21-32) Anion Gap 7 (6-14) Blood Urea Nitrogen 15 mg/dL (7-20) Creatinine 0.7 mg/dL (0.6-1.0) Estimated GFR (Cockcroft-Gault) 100.4 BUN/Creatinine Ratio 21 (6-20) Glucose Level 112 mg/dL (70-99) Calcium Level 9.5 mg/dL (8.5-10.1) Total Bilirubin 0.4 mg/dL (0.2-1.0) Aspartate Amino Transf (AST/SGOT) 24 U/L (15-37) Alanine Aminotransferase (ALT/SGPT) 34 U/L (14-59) Alkaline Phosphatase 86 U/L (46-116) Total Protein 7.8 g/dL (6.4-8.2) Albumin 4.1 g/dL (3.4-5.0) Albumin/Globulin Ratio 1.1 (1.0-1.7) Lipase 136 U/L (73-393) I have reviewed the following BP down last noc better this AM Problem List Problems Medical Problems: (1) Acute appendicitis Status: Acute Assessment/Plan POD 1 l/s appendectomy home today stay off work call office Tuesday for update re: RTW AIME GARCIA MD Feb 23, 2019 11:36
[2019-02-23] MEDS: oxyCODONE/APAP 5/325 1 TAB TABLET PO PRN (11:57)
[2019-02-23] MEDS ORDERED: IV NORMAL SALINE 1000ML BAG 1,000 ML IV ONE (12:00)
[2019-02-23 12:28] LABS: HEMATOCRIT 38.2 % (36.0-47.0); HEMOGLOBIN 12.9 g/dL (12.0-15.5)
[2019-02-23] MEDS: POTASSIUM CL 20MEQ-0.45% NACL 1,000 ML IV SCH (12:56)
[2019-02-23] MEDS ORDERED: OXYC-325 PO (15:37)
--- NOTE | 2019-02-26 16:06 | PATHOLOGY ---
[facility] Accession Number: [id number] . 01 Material submitted: . appendix - APPENDIX . 01 Clinical history: . Appendicitis. . 02 Diagnosis: Appendix, appendectomy: - Acute appendicitis. . (JPM:[facility]; 02/26/2019) S 02/26/2019 0853 Local . 02 Comment: There is no evidence of rupture. . 02 Electronically signed: . Tremaine Rodriguez MD, Pathologist NPI- [id number] . 01 Gross description: . Received in formalin labeled "Cervantesmata, Diane, appendix" is an intact appendectomy specimen measuring 9.2 cm in length and 1.2 cm in diameter. There is an attached portion of mesoappendix measuring 5.7 x 2.5 x 1.2 cm. The proximal margin is closed with staple lines. The serosa is pink-bone and focally hemorrhagic. The specimen is sectioned to reveal no perforations or fecaliths, and a luminal diameter of 1.1 cm. Product Management Specialist sections are submitted in cassettes A1-A2, with the proximal margin inked black. ([facility]; 02/22/2019) SY/[facility] 02/26/2019 0853 Local . 02 Pathologist provided ICD-10: K35.80 . 02 CPT . 902312 Specimen Comment: A courtesy copy of this report has been sent to [phone], [phone] Specimen Comment: [id number], Specimen Comment: Report sent to ,DR CHEN / DR SALAS Performed at: [address], [place], [place] [id number] MD Twin Madsen MD Phone: [phone] Performed at: 02 [facility] [address] [place], [place] [id number] MD Tremaine Rodriguez MD Phone: [phone]
== END 2019-02-23 16:00 | disposition home or self-care (01) | DRG 343 ==
LOC: ER 00:45 → 4 NORTH 05:50
PROVIDERS: ADMIT Internal Medicine; ATTEND Internal Medicine
PROC: 0DTJ4ZZ Resection of Appendix, Percutaneous Endoscopic Approach (ICD-10-PCS; principal; 2019-02-22 09:30)
DX: K35.80 Unspecified acute appendicitis (principal); E11.9 Type 2 diabetes mellitus without complications; E66.9 Obesity, unspecified; G43.909 Migraine, unspecified, not intractable, without status migrainosus; Z82.49 Family history of ischemic heart disease and other diseases of the circulatory system; Z86.32 Personal history of gestational diabetes; Z68.33 Body mass index [BMI] 33.0-33.9, adult; Z79.899 Other long term (current) drug therapy
CPT/HCPCS: 36415; 74177; 76705; 80053; 81001; 81025; 83690; 85014; 85018; 85025; 87086; 96374; 96376; A7015; J0330; J0692; J0696; J0780; J1170; J1200; J1650; J1885; J2001; J2270; J2370; J2405; J2704; J2710; J3010; J3490; J7030; J7120; Q0169; Q9967; 99285-25; G0378

== ENCOUNTER → 2019-08-24 | Outpatient (CLI) | payer OTHER ==
[2019-02-23 15:04] VITALS: BP 107/67
[~2019-08-24] MED LIST changes: +OXYC-325 PO
[2019-08-24 12:26] LABS: ALBUMIN 3.6 g/dL (3.4-5.0); CALCIUM 8.6 mg/dL (8.5-10.1); CHOLESTEROL/HDL RATIO 4.2; CREATININE 0.8 mg/dL (0.6-1.0); GFR 85.4; POTASSIUM 4.2 mmol/L (3.5-5.1); TOTAL BILIRUBIN 0.4 mg/dL (0.2-1.0); TOTAL PROTEIN 7.3 g/dL (6.4-8.2)
[2019-08-25 02:40] LABS: HEMOGLOBIN A1C 5.7 % (4.8-5.6)
== END | disposition home or self-care (01) ==
LOC: LAB 09:54
PROVIDERS: ATTEND Family Medicine
DX: E04.1 Nontoxic single thyroid nodule (principal); E78.5 Hyperlipidemia, unspecified; R73.01 Impaired fasting glucose
CPT/HCPCS: 36415; 80053; 80061; 83036; 84436; 84443

== ENCOUNTER → 2019-09-10 | Outpatient (CLI) | payer OTHER ==
[2019-02-23 15:04] VITALS: BP 107/67
--- NOTE | 2019-09-10 10:06 | RAD ---
THYROID ULTRASOUND History: Reason: THYROID NODULE / Spl. Instructions: / History: Comparison: August 21, 2018 Technique: Multiple grayscale and color Doppler images of the thyroid gland were obtained. Findings: Right thyroid lobe: 4.6 x 1.7 x 1.5 cm. Homogeneous echotexture. Left thyroid lobe: 5.3 x 2.3 x 2.1 cm. Homogeneous echotexture. Isthmus: 0.6 cm. Left superior solid hypoechoic nodule measures 0.5 x 0.5 x 0.3 cm. TI-RADS 4. Unchanged compared to prior. Left mid cystic and solid nodule measures 1.0 x 0.9 x 0.7 cm. TI-RADS 3. Slightly increased in size compared to prior. Large left mid posterior thyroid solid nodule measures 3.1 x 1.9 x 1.5 cm with regions of hypoechogenicity. Reportedly previously biopsied. Slightly increased compared to prior. TI-RADS 4 ACR Thyroid Imaging, Reporting And Data System (TI-RADS): White Paper Of The ACR TI-RADS Committee. Journal of the [employer] [employer], volume 14, issue 5, pages 587-595 (June 2016). IMPRESSION: 1. Slightly increased large left mid thyroid nodule. Recommend correlation with previous biopsy results. 2. Slightly increased TI-RADS 3 and unchanged additional TI-RADS 4 left thyroid nodule. Recommend ultrasound follow-up. Electronically signed by: Jose Luis Mack DO (09/10/2019 10:03 AM) [id number]
== END | disposition home or self-care (01) ==
LOC: US 07:04
PROVIDERS: ATTEND Family Medicine
DX: E04.2 Nontoxic multinodular goiter (principal)
CPT/HCPCS: 76536

== ENCOUNTER → 2019-10-25 | Outpatient (CLI) | payer OTHER ==
[2019-02-23 15:04] VITALS: BP 107/67
[~2019-10-25] MED LIST changes: +AMOX500C PO; +DOCU-109 PO; +LIDO20SO PO; +METF10007 PO; +MULT-245 PO; +OXYC1TAB15 PO
== END | disposition home or self-care (01) ==
LOC: LAB 12:52
PROVIDERS: ATTEND Surgery
DX: Z01.812 Encounter for preprocedural laboratory examination (principal); E04.2 Nontoxic multinodular goiter; Z20.828 Contact with and (suspected) exposure to other viral communicable diseases
CPT/HCPCS: U0003-CS

== ENCOUNTER 2019-10-29 06:05 | Observation (INO) | payer OTHER ==
[2019-10-29] VITALS (12 sets, daily range): BP systolic 98–124; BP diastolic 37–72
[~2019-10-29] VITALS: Ht 170.2 cm; Wt 103.5 kg
[~2019-10-29 06:05] MED LIST changes: -DOCU-109 PO; -MULT-245 PO; -OXYC1TAB15 PO
[2019-10-29] MEDS ORDERED: HYDROmorphone 2 MG/ML VIAL IV PRN (07:00)
[2019-10-29] MEDS ORDERED: MORPHINE SULFATE 2 MG/ML VIAL. IV PRN ×2 (07:00→10:00)
[2019-10-29] MEDS ORDERED: ONDANSETRON PF 4 MG/2 ML VIAL. IV PRN (07:00)
[2019-10-29] MEDS ORDERED: fentaNYL PF VIAL 100 MCG/2 ML VIAL IV PRN ×2 (07:00)
[2019-10-29] MEDS ORDERED: LIDOCAINE 1% PF 2 ML VIAL. ID PRN (07:00)
[2019-10-29] MEDS: IV RINGERS,LACTATED 1000ML 1,000 ML IV SCH ×2 (07:07→10:08)
[2019-10-29] MEDS ORDERED: MULT-245 PO (07:10)
[2019-10-29] MEDS ORDERED: DOCU-109 PO (07:10)
[2019-10-29] MEDS ORDERED: SUCCINYLCHOLINE 200 MG/10 ML VIAL. ONE (07:18)
[2019-10-29] MEDS ORDERED: ROCURONIUM 50 MG/5 ML VIAL. ONE (07:18)
[2019-10-29] MEDS ORDERED: PROPOFOL 10 MG/ML (20ML) VIAL. IV ONE (07:18)
[2019-10-29] MEDS ORDERED: LIDOCAINE 2% PF 5 ML VIAL. ONE (07:18)
[2019-10-29] MEDS ORDERED: fentaNYL PF VIAL 100 MCG/2 ML VIAL ONE (07:19)
[2019-10-29] MEDS ORDERED: DEXAMETHASONE SOD PHOS 4 MG/ML VIAL ONE (07:53)
[2019-10-29] MEDS ORDERED: DESFLURANE 61 TO 120 MINUTES IH ONE (07:53)
[2019-10-29] MEDS ORDERED: ONDANSETRON PF 4 MG/2 ML VIAL. ONE (08:22)
[2019-10-29] MEDS ORDERED: PROCHLORPERAZINE 10 MG/2 ML VIAL. ONE (09:48)
[2019-10-29] MEDS: IV NORMAL SALINE 1000ML BAG 1,000 ML IV SCH (09:54)
[2019-10-29] MEDS ORDERED: NALOXONE 0.4 MG/ML VIAL. IV PRN (10:00)
[2019-10-29] MEDS ORDERED: oxyCODONE/APAP 5/325 1 TAB TABLET PO PRN ×2 (10:00)
[2019-10-29] MEDS ORDERED: 0.9 % SODIUM CHLORIDE 10 ML DISP.SYRIN. IV PRN (10:00)
[2019-10-29] MEDS ORDERED: ONDANSETRON PF 4 MG/2 ML VIAL. IVP PRN (10:00)
--- NOTE | 2019-10-29 10:03 | PDOC4 ---
Operative Note Operative Note Operative Note: Preoperative Diagnosis: Left thyroid nodules Postoperative Diagnosis: Same Procedure: Left thyroidectomy Surgeon: Johnny Transverse Abdominal Muscle Nurse: Dr. Garth HUGHES, Jovan ORTEGA Anesthesia: General EBL: 40 mL Specimen: Left thyroid to pathology, stitch at superior pole Drains: None Complications: None Indication: The patient is a 29-year-old female who was referred with nodules in the left thyroid. In particular there is a dominant larger nodule that has increased in size. She requests a hemithyroidectomy due to some compressive symptoms. The risks of surgery were discussed which include bleeding, infection, recurrent laryngeal nerve injury, pain, voice changes, anesthetic risk, hypo-parathyroidism, potential need for additional surgery procedure. She understands and would like to proceed. Description: The patient was taken to the operating room and placed supine on the operating table. General anesthesia was performed. The Nims device was assembled and the skin probes were placed. The anterior neck was prepped with ChloraPrep and draped in a standard surgical manner. A curved incision was made in the skin folds of the anterior neck with a scalpel. Cautery dissection was carried through the platysma. Subplatysmal flaps were developed superiorly and inferiorly. The strap muscle fascia was divided in the middle. We directed our attention to the left thyroid. The left thyroid lobe was mobilized away from the thyroid strap muscles. The superior pole was then taken down. Blood vessels supplying the pole were ligated with 2-0 Vicryl and divided. The harmonic scalpel assisted with this mobilization. In a similar manner vessel supplying the inferior pole were ligated with 2-0 Vicryl and divided. In a lateral to medial fashion the remaining thyroid was mobilized toward the trachea. The recurrent laryngeal nerve was identified and preserved. The nerve stimulated appropriately with the Nims device. The remainder of the left thyroid lobe was mobilized from the trachea and the right side using the harmonic scalpel. A stitch was used to pat the superior pole and was sent to pathology. Frozen sections were performed which were unable to clearly determine if cancer was present. We elected to conclude the case. Hemostasis was good. The strap muscle fascia was reapproximated with 3-0 Vicryl. The platysma was closed with 3-0 Vicryl. The skin was closed with 4-0 Monocryl. Steri-Strips and a sterile dressing were applied. The patient tolerated the procedure well and was sent to the recovery room in stable condition. At the end of the case all counts were correct. NATHANIEL ALSTON MD Oct 29, 2019 10:03
[2019-10-29] MEDS: PROCHLORPERAZINE 10 MG/2 ML VIAL. IV PRN ×2 (10:08→10:39)
[2019-10-29] MEDS ORDERED: SCOPOLAMINE 1.5MG PATCH. TD ONE (10:29)
[2019-10-29] MEDS ORDERED: SCOPOLAMINE 1.5MG PATCH. TD SCH (10:35)
[2019-10-29] MEDS: IV 1/2 NORMAL SALINE 1,000 ML IV SCH ×2 (11:26→22:24)
[2019-10-30 03:00] VITALS: BP 100/37
[2019-10-30 07:00] VITALS: BP 104/51
[2019-10-30] MEDS ORDERED: OXYC1TAB15 PO (08:46)
--- NOTE | 2019-10-30 08:49 | DISCH ---
DISCHARGE INSTRUCTIONS Condition on Discharge Condition on Discharge: Stable Activity After Discharge Activity Instructions for Disc: Activity as tolerated Exercise Instruction after Dis: Progress as tolerated Weight Bearing Status after Di: As tolerated Diet after Discharge Diet after Discharge: Regular Diet Texture: Regular Wound Incision Care Wound/Incision Care: May get incision wet, No wound care needed Checks after Discharge Checks after discharge: Check your Temp as needed Contacting the DRAparna after DC Call your doctor for: Concerns you may have Follow-Up Follow up with: Dr Turner 2 weeks, call to schedule [phone] Treatment/Equipment after DC Adaptive Equipment Issued: None ANALI OJEDA APRN Oct 30, 2019 08:49
--- NOTE | 2019-10-30 08:51 | PDOC ---
ANALI OJEDA APRN 10/30/19 0851: SURGICAL PROGRESS NOTE DATE: 10/30/19 TIME: 08:49 Subjective doing well minimal pain swallowing well voice strong Vital Signs Vital Signs Date Time Temp Pulse Resp B/P (MAP) Pulse Ox O2 Delivery O2 Flow Rate FiO2 10/30/19 08:30 Room Air 10/30/19 07:00 98.5 60 18 104/51 (68) 95 98.5 10/29/19 09:55 10 I&O Intake and Output 10/30/19 07:00 Intake Total 3500 ml Output Total 40 ml Balance 3460 ml Intake Oral 450 ml IV Total 3050 ml Output Estimated Blood Loss 40 ml # Voids 5 General: Alert, Oriented X3, Cooperative HEENT: Other (incision to neck c/d/i, minimal edema, no ecchymosis ) Labs Laboratory Tests Test 10/29/19 06:50 Bedside Urine HCG, Qualitative Hcg negative (Negative) Assessment/Plan s/p left thyroidectomy plan home today FU 2 weeks Justicifation of Admission Dx: Justifications for Admission: Justification of Admission Dx: Yes Comments: mulit nodule thyroid NATHANIEL ALSTON MD 10/30/19 0857: SURGICAL PROGRESS NOTE Assessment/Plan Agree with above ANALI OJEDA APRN Oct 30, 2019 08:51 NATHANIEL ALSTON MD Oct 30, 2019 08:57
--- NOTE | 2019-10-30 08:53 | PDOC3 ---
Discharge Summary Visit Information Date of Admission: Oct 29, 2019 Date of Discharge: Oct 30, 2019 Admitting Diagnosis: Left thyroid nodules Final Diagnosis Left thyroid nodules Brief Hospital Course Allergies Allergies Coded Allergies Type Severity Reaction Last Updated Verified caffeine Allergy Unknown PALPITATIONS 10/29/19 Yes metformin Allergy Unknown 10/25/19 Yes Vital Signs Vital Signs Date Time Temp Pulse Resp B/P (MAP) Pulse Ox O2 Delivery O2 Flow Rate FiO2 10/30/19 08:30 Room Air 10/30/19 07:00 98.5 60 18 104/51 (68) 95 98.5 10/29/19 09:55 10 Lab Results Laboratory Tests Test 10/29/19 06:50 Bedside Urine HCG, Qualitative Hcg negative (Negative) Brief Hospital Course Ms. Gunter is a 29 old female who underwent Left thyroidectomy. Postoperatively tolerating diet, ambulating, and pain managed. Will discharge home and FU 2 weeks Discharge Information Condition at Discharge: Stable Follow Up: Weeks (2) Disposition/Orders: D/C to Home Scheduled Docusate Sodium (Colace) 100 Mg Capsule, 1 CAP PO BID for CONSTIPATION for 30 Days, #60 Ref 0 (Reported) Entered as Reported by: GEOFFREY NIEVES on 10/29/19709 Last Action: New Order on 10/29/19709 by GEOFFREY NIEVES Multivitamin (Multi Vitamin Daily) 1 Each Tablet, 1 EACH PO DAILY for SUPP, (Reported) Entered as Reported by: GEOFFREY NIEVES on 10/29/19709 Last Action: New Order on 10/29/19709 by GEOFFREY NIEVES Scheduled PRN Oxycodone/Apap 5-325 (Percocet 5-325 Mg Tablet ) 1 Each Tablet, 1 TAB PO PRN Q4HRS PRN for MILD PAIN, 1ST CHOICE, #15 Ref 0 Prescribed by: Anali Ojeda on 10/30/19 0846 Justicifation of Admission Dx: Justifications for Admission: Justification of Admission Dx: Yes ANALI OJEDA MANAGER [employer] Oct 30, 2019 08:53
--- NOTE | 2019-10-30 09:15 | NUR ---
SW following. Discussed with RN, pt from home with family, room air, full liquid diet. RN advised no SW needs, and anticipates pt will discharge home after lunch today. SW will continue to follow, should any discharge needs arise.
[2019-10-30] MEDS: IV NORMAL SALINE 1000ML BAG 1,000 ML IV SCH (09:54)
[2019-10-30] MEDS: IV 1/2 NORMAL SALINE 1,000 ML IV SCH (09:56)
[2019-10-30 11:00] VITALS: BP 104/51
--- NOTE | 2019-10-30 14:17 | NUR ---
Pt left unit at approx 1415 by ambulation via private vehicle. Pt's IV removed with no complications, VSS. Discharge paperwork and follow-up discussed with pt. Pt verbalizes understanding with no additional questions. Belongings returned to pt at time of discharge.
--- NOTE | 2019-10-31 15:08 | PATHOLOGY ---
[facility] Accession Number: [id number] . 01 Material submitted: . PART A: thyroid gland - LEFT THYROID - FS. Modifiers: left PART B: thyroid gland - ADDITIONAL LEFT THYROID TISSUE. Modifiers: left . 01 Clinical history: . LEFT THYROID NODULE . 02 Frozen section diagnosis: . INTRAOPERATIVE CONSULTATION WITH FROZEN SECTION: FSA1. Left thyroid lobe, excision: - Follicular nodule - definitive diagnosis deferred to permanent sections. . The results are discussed with Dr. Turner in the pathology area. (JPM:[facility] 10/29/2019) . FROZEN SECTION GROSS DESCRIPTION: A. The specimen is received fresh for intraoperative consultation and is designated "left thyroid stitch at superior pole". This consists of a small lobe of reddish-purple tyroid tissue which weighs 10 grams. The lobe measures 4.0 x 2.5 x 1.5 cm. There is a suture attached to the superior pole. Loosely attached to the lateral aspect of the mid portion of the lobe is a reddish-orange nodule measuring up to 2.4 cm length and 1.5 cm in diameter. There is focal black cautery change at the posterior aspect of the lobe. The margins are inked. The thyroid lobe has a reddish-purple meaty appearance. There is an ill-defined brown soft nodule within the medial aspect of the inferior pole measuring up to 0.8 cm. Sectioning of the loosely attached nodule reveals a pink-bone soft bulging cut surface. A product representative portion from this loosely attached nodule is submitted for frozen section as FSA1. The tissue remaining from frozen section is submitted as A1. The remainder of the loosely attached nodule is submitted for permanent sections as A2. The remainder of the thyroid lobe is submitted from inferior pole to superior pole as A3 - A7. (JPM:[facility] 10/29/2019) . Frozen section performed at [facility], [address] [place] [address], [place] [address]. KATIE/EUSEBIA . 02 Diagnosis: A. Thyroid tissue, left thyroidectomy: - Adenomatous nodule, measuring 2.4 cm, loosely attached to lateral aspect of middle thyroid lobe. - Small adenomatous nodules of thyroid lobe, several. - Single parathyroid gland identified attached to large adenomatous nodule. . B. Thyroid tissue, additional left thyroid tissue: - Few small adenomatous nodules. . (JPM:digital media [employer]; 10/30/2019) MBR 10/31/2019 1423 Local . 02 Comment: There is no evidence of malignancy. (JPM:digital media analyst; 10/30/2019) . 02 Electronically signed: . Tremaine Rodriguez MD, Pathologist NPI- [id number] . 01 Gross description: . A. SEE FROZEN SECTION FOR GROSS DESCRIPTION . B. The specimen is received in formalin and is designated "additional left thyroid tissue". This consists of a bilobed segment of thompson-brown tissue measuring up to 1.8 cm in length and 0.9 cm in width. The margins are inked. The specimen is bisected. Sectioning reveals a reddish-brown meaty cut surface. All is submitted for microscopy as B1. (JPM:[place] 10/29/2019) /P 10/30/2019 0709 Local . 02 Pathologist provided ICD-10: E04.1 . 02 CPT . 453357, 929848, 052222 Specimen Comment: A courtesy copy of this report has been sent to [phone] Specimen Comment: [phone] Specimen Comment: Report sent to / DR YUNG Performed at: 01 [facility] [address] [facility] [address], [place] [id number] MD Twin Madsen MD Phone: [phone] Performed at: 02 [facility] [address] [place], [place] [id number] MD Tremaine Rodriguez MD Phone: [phone]
== END 2019-10-30 14:19 | disposition home or self-care (01) ==
LOC: SURG 06:05 → MERGE 07:30 → 4 NORTH 09:54
PROVIDERS: ADMIT Surgery; ATTEND Surgery
DX: E04.2 Nontoxic multinodular goiter (principal); E89.0 Postprocedural hypothyroidism
CPT/HCPCS: 60210; 81025; 96361; 96374; A7015; G0378; G0379; J0330; J0690; J0780; J1100; J2405; J3010; J3490; J7120; 88305; 88307; 88331; J2704

== ENCOUNTER → 2020-01-15 | Outpatient (CLI) | payer OTHER ==
[~2020-01-15] MED LIST changes: +DOCU-109 PO; +MULT-245 PO; +OXYC1TAB15 PO
[2020-01-15 10:12] LABS: BASO % 1 % (0-3); EOS # 0.1 x10^3/uL (0.0-0.7); EOS % 2 % (0-3); HEMATOCRIT 39.6 % (36.0-47.0); HEMOGLOBIN 13.6 g/dL (12.0-15.5); LYMPH # 1.3 x10^3/uL (1.0-4.8); LYMPH % 19 % (24-48); MEAN CORPUSCULAR HEMOGLOBIN 31 pg (25-35); MEAN CORPUSCULAR HGB CONC 34 g/dL (31-37); MEAN CORPUSCULAR VOLUME 90 fL (79-100); MONO # 0.6 x10^3/uL (0.0-1.1); MONO % 9 % (0-9); NEUT # 4.9 x10^3/uL (1.8-7.7); NEUT % 70 % (31-73); PLATELET COUNT 313 x10^3/uL (140-400); RED BLOOD COUNT 4.41 x10^6/uL (3.50-5.40); RED CELL DISTRIBUTION WIDTH 13.5 % (11.5-14.5)
[2020-01-15 10:20] LABS: ALBUMIN 3.6 g/dL (3.4-5.0); CALCIUM 9.1 mg/dL (8.5-10.1); CREATININE 0.6 mg/dL (0.6-1.0); POTASSIUM 4.5 mmol/L (3.5-5.1); TOTAL BILIRUBIN 0.5 mg/dL (0.2-1.0); TOTAL PROTEIN 7.3 g/dL (6.4-8.2)
--- NOTE | 2020-01-15 14:31 | RAD ---
EXAM: AP pelvis, AP and lateral views left hip DATE: 01/15/2020 12:00 AM INDICATION: Reason: PAIN / Spl. Instructions: / History: COMPARISON: No Prior FINDINGS: No acute fracture or dislocation. Hip joint spaces are preserved. IUD is seen within the pelvis. Diffuse symphysis or SI joint diastases. Surgical clips project over the right lower abdomen. IMPRESSION: 1. No evidence of acute fracture or dislocation. 2. Joint spaces are preserved without significant degenerative/proliferative change. Electronically signed by: Boogie Padilla MD (01/15/2020 2:28 PM) CHRISTY
[2020-01-16 03:13] LABS: HEMOGLOBIN A1C 5.7 % (4.8-5.6)
== END ==
LOC: LAB 09:04
PROVIDERS: ATTEND Family Medicine
DX: E03.9 Hypothyroidism, unspecified (principal); M25.552 Pain in left hip; R73.01 Impaired fasting glucose; R53.83 Other fatigue
CPT/HCPCS: 36415; 73502; 80053; 83036; 84436; 84443; 85025

== ENCOUNTER → 2020-04-22 | Outpatient (CLI) | payer OTHER | LOC: LAB 10:20 | PROVIDERS: ATTEND Family Medicine | DX: E03.9 Hypothyroidism, unspecified (principal) | CPT/HCPCS: 36415; 84436; 84443 ==

== ENCOUNTER 2020-09-09 16:40 | Emergency (ER) | payer OTHER ==
[~2020-09-09] VITALS: Ht 172.7 cm; Wt 90.9 kg
--- NOTE | 2020-09-09 19:38 | PHYS DOC ---
Past Medical History Past Medical History: Migraines Additional Past Medical Histor: BILATERAL THYROID MASSES, GESTATIONAL DM Past Surgical History: Appendectomy, Additional Past Surgical Histo: Thyroid biopsy Smoking Status: Former Smoker Alcohol Use: Occasionally Drug Use: None General Adult EDM: Chief Complaint: ABDOMINAL PAIN HPI: HPI: Patient is a 30 year old female who present to ER for evaluation of right upper quad abdominal pain associate with nausea vomiting since earlier this morning. Patient also had some diarrhea. Patient denies any cough or fever. Patient was vaccinated for COVID-19 last year. Patient denies any chest pain or any trouble breathing. Patient denies any urinary frequency or urgency. Review of Systems: Review of Systems: Constitutional: Denies fever or chills. [] Eyes: Denies change in visual acuity. [] HENT: Denies nasal congestion or sore throat. [] Respiratory: Denies cough or shortness of breath. [] Cardiovascular: Denies chest pain or edema. [] GI: Positive for abdominal pain, nausea vomiting, diarrhea : Denies dysuria. [] Musculoskeletal: Denies back pain or joint pain. [] Integument: Denies rash. [] Neurologic: Denies headache, focal weakness or sensory changes. [] Endocrine: Denies polyuria or polydipsia. [] Lymphatic: Denies swollen glands. [] Psychiatric: Denies depression or anxiety. [] Heart Score: C/O Chest Pain: N/A Risk Factors: Risk Factors: DM, Current or recent (<one month) smoker, HTN, HLP, family history of CAD, obesity. Risk Scores: Score 0 - 3: 2.5% MACE over next 6 weeks - Discharge Home Score 4 - 6: 20.3% MACE over next 6 weeks - Admit for Clinical Observation Score 7 - 10: 72.7% MACE over next 6 weeks - Early Invasive Strategies Allergies: Allergies: Allergies Coded Allergies Type Severity Reaction Last Updated Verified caffeine Allergy Unknown PALPITATIONS 10/29/19 Yes metformin Allergy Unknown 10/25/19 Yes Physical Exam: PE: Constitutional: Well developed, well nourished, no acute distress, non-toxic appearance. [] HENT: Normocephalic, atraumatic, bilateral external ears normal, oropharynx moist, no oral exudates, nose normal. [] Eyes: PERRLA, EOMI, conjunctiva normal, no discharge. [] Neck: Normal range of motion, no tenderness, supple, no stridor. [] Cardiovascular:Heart rate regular rhythm, no murmur [] Lungs & Thorax: Bilateral breath sounds clear to auscultation [] Abdomen: Bowel sounds normal, soft, tender to palpation in right upper quadrant, no masses, no pulsatile masses. [] Skin: Warm, dry, no erythema, no rash. [] Back: No tenderness, no CVA tenderness. [] Extremities: No tenderness, no cyanosis, no clubbing, ROM intact, no edema. [] Neurologic: Alert and oriented X 3, normal motor function, normal sensory function, no focal deficits noted. [] Psychologic: Affect normal, judgement normal, mood normal. [] Current Patient Data: Labs: Laboratory Tests Test 09/09/20 19:05 POC Urine HCG, Qualitative Hcg negative (Negative) Vital Signs: Vital Signs Date Time Temp Pulse Resp B/P (MAP) Pulse Ox O2 Delivery O2 Flow Rate FiO2 09/09/20 19:08 63 20 117/68 (84) 98 Room Air 09/09/20 18:29 98.7 98.7 EKG: EKG: [] Radiology/Procedures: Radiology/Procedures: [][facility] [address] [place] [address] IMAGING REPORT Signed PATIENT: RUBÉN STANLEYACCOUNT: [id number] : 1990 LOCATION: ER AGE: 30 SEX: F EXAM STATUS: REG ER ORD. PHYSICIAN: ALBERT ROBERTSON DO REASON: RUQ abdominal pain PROCEDURE: ABDOMEN LTD INDICATION : Reason: RUQ abdominal pain / Spl. Instructions: / History: COMPARISON: CT February 2019 TECHNIQUE: Multiple ultrasound images obtained through the abdomen in grayscale and color. FINDINGS: Pancreas: Largely obscured by overlying structures Liver: Echogenic. Only partially seen. Gallbladder: Small amount of debris within IVC: Partially distended at level of liver. Common Bile Duct: Not dilated. Right Kidney: No hydronephrosis. IMPRESSION: * Small amount material within the gallbladder which can be seen with sludge or small stones.. * Limited evaluation secondary to overlying structures obscuring with echogenic liver which can be seen with fatty infiltration. Electronically signed by: Dorian Akers MD (09/09/2020 9:29 PM) Bright![id number] DICTATED and SIGNED BY: DORIAN AKERS MD DATE: 09/09/20 [id number] [facility] [address] [place] [address] IMAGING REPORT Signed PATIENT: RUBÉN STANLEYACCOUNT: [id number] : 1990 LOCATION: ER AGE: 30 SEX: F EXAM STATUS: REG ER ORD. PHYSICIAN: ALBERT ROBERTSON DO REASON: right side abdominal pain;OMNI 300, 75ML PROCEDURE: CT ABD PELV W/ IV CONTRST ONLY INDICATION: Reason: right side abdominal pain;OMNI 300, 75ML / Spl. Instructions: / History: . COMPARISON: February 22, 2019 TECHNIQUE: Axial CT images obtained through the abdomen and pelvis with contrast. One or more of the following individualized dose reduction techniques were utilized for this examination: 1. Automated exposure control; 2. Adjustment of the mA and/or kV according to patient size; 3. Use of iterative reconstruction technique. FINDINGS: Mild dependent opacities at lung bases which could be from atelectasis. Abdominal aorta is not aneurysmal. No intrahepatic bile duct dilation. Liver is mildly low density. Nonspecific but can be seen with fatty infiltration . There is a focus of low density adjacent to the falciform ligament within the liver. Could be artifactual in nature or secondary to focal fat given the location. No peripancreatic fluid collection. Lobulated appearance of the spleen. No hydronephrosis. Intrauterine device is seen. Urinary bladder is distended at time of exam. Surgical clips at the right lower quadrant could be from prior appendectomy. Small fat-containing umbilical hernia. Degenerative changes the spine. IMPRESSION: * Urinary bladder is dilated at time of exam. Could be from the patient not urinating recently but would correlate with symptoms to ensure that this is not secondary to causes such as partial bladder outlet obstruction. * No hydronephrosis. Electronically signed by: Dorian Akers MD (09/10/2020 12:26 AM) [id number] DICTATED and SIGNED BY: DORIAN AKERS MD DATE: 09/10/20 [id number] 0 Course & Med Decision Making: Course & Med Decision Making Pertinent Labs and Imaging studies reviewed. (See chart for details) Patient is a 30-year-old female who present to ER due to abdominal pain. CT scan did not show any acute problem. Ultrasound gallbladder did not show any acute problem. Lab work came back normal. Patient will need to follow-up family physician for outpatient evaluation with HIDA scan of her gallbladder. Dragon Disclaimer: Dragon Disclaimer: This electronic medical record was generated, in whole or in part, using a voice recognition dictation system. Departure Departure Impression: Primary Impression: Abdominal pain Disposition: HOME / SELF CARE / HOMELESS Condition: STABLE Referrals: SHEBA CHEN MD (PCP) Follow up with your doctor for outpatient evaluation this week. Patient Instructions: Abdominal Pain (Nonspecific) Additional Instructions: Thank you for visiting our Emergency Department. We appreciate you trusting us with your care. If any additional problems come up don't hesitate to return to visit us. Please follow up with your primary care provider so they can plan additional care if needed and know about the problem that you had. If symptoms worsen come back to the Emergency Department. Any concerning symptoms that start such as chest pain, shortness of air, weakness or numbness on one side of the body, running high fevers or any other concerning symptoms return to the ER. Scripts Ondansetron Hcl (ZOFRAN) 4 Mg Tablet 1 TAB PO Q8HRS PRN for NAUSEA, #20 TAB Prov: ALBERT ROBERTSON DO 09/10/20 Dicyclomine Hcl (DICYCLOMINE HCL) 10 Mg Capsule 1 CAP PO PRN Q6HRS PRN for ABDOMINAL CRAMPS, #30 CAP 3 Refills Prov: ALBERT ROBERTSON DO 09/09/20 ALBERT ROBERTSON DO Sep 09, 2020 19:38
[2020-09-09] MEDS ORDERED: IV NORMAL SALINE 1000ML BAG 1,000 ML IV SCH (19:45)
[2020-09-09 19:50] LABS: BILIRUBIN,URINE NEGATIVE (NEG); CLARITY,URINE CLEAR; COLOR,URINE YELLOW; NITRITE,URINE NEGATIVE (NEG); PH,URINE 5.5 (<5.0-8.0); PROTEIN,URINE NEGATIVE (NEG-TRACE); UROBILINOGEN,URINE 0.2 mg/dL (0.2 mg/dL)
[2020-09-09 19:57] LABS: BACTERIA,URINE MODERATE /HPF (0-FEW); RBC,URINE 0 /HPF (0-2)
[2020-09-09] MEDS ORDERED: ONDANSETRON PF 4 MG/2 ML VIAL. IVP ONE (20:15)
[2020-09-09 20:21] LABS: BASO % 0 % (0-3); EOS % 0 % (0-3); HEMATOCRIT 37.8 % (36.0-47.0); HEMOGLOBIN 12.8 g/dL (12.0-15.5); LYMPH # 0.9 x10^3/uL (1.0-4.8); LYMPH % 10 % (24-48); MEAN CORPUSCULAR HEMOGLOBIN 30 pg (25-35); MEAN CORPUSCULAR HGB CONC 34 g/dL (31-37); MEAN CORPUSCULAR VOLUME 89 fL (79-100); MONO # 0.4 x10^3/uL (0.0-1.1); MONO % 5 % (0-9); NEUT # 7.5 x10^3/uL (1.8-7.7); NEUT % 85 % (31-73); PLATELET COUNT 291 x10^3/uL (140-400); RED BLOOD COUNT 4.23 x10^6/uL (3.50-5.40); RED CELL DISTRIBUTION WIDTH 13.7 % (11.5-14.5); WHITE BLOOD COUNT 8.8 x10^3/uL (4.0-11.0)
[2020-09-09 20:28] LABS: CALCIUM 8.9 mg/dL (8.5-10.1); CREATININE 0.8 mg/dL (0.6-1.0); GFR 84.8; POTASSIUM 4.1 mmol/L (3.5-5.1)
[2020-09-09 20:34] LABS: ALBUMIN 3.6 g/dL (3.4-5.0); TOTAL BILIRUBIN 1.1 mg/dL (0.2-1.0); TOTAL PROTEIN 7.2 g/dL (6.4-8.2)
[2020-09-09 20:39] LABS: % BANDS 1 % (0-9); % EOS 1 % (0-5); % LYMPHS 8 % (24-48); % MONOS 3 % (0-10); % SEGS 87 % (35-66)
[2020-09-09 20:40] LABS: PLT ESTIMATE ADEQUATE (ADEQUATE)
--- NOTE | 2020-09-09 21:32 | RAD ---
INDICATION : Reason: RUQ abdominal pain / Spl. Instructions: / History: COMPARISON: CT February 2019 TECHNIQUE: Multiple ultrasound images obtained through the abdomen in grayscale and color. FINDINGS: Pancreas: Largely obscured by overlying structures Liver: Echogenic. Only partially seen. Gallbladder: Small amount of debris within IVC: Partially distended at level of liver. Common Bile Duct: Not dilated. Right Kidney: No hydronephrosis. IMPRESSION: * Small amount material within the gallbladder which can be seen with sludge or small stones.. * Limited evaluation secondary to overlying structures obscuring with echogenic liver which can be s een with fatty infiltration. Electronically signed by: Rishabh Shay MD (09/09/2020 9:29 PM) [id number]
[2020-09-09] MEDS ORDERED: DICY10CA3 PO (22:35)
[2020-09-09] MEDS ORDERED: DICYCLOMINE 20 MG/2 ML VIAL. IM ONE (23:00)
[2020-09-09] MEDS ORDERED: KETOROLAC 30 MG/ML VIAL. IVP ONE (23:00)
[2020-09-09] MEDS ORDERED: CONTRAST GIVEN. MC PRN (23:30)
[2020-09-09] MEDS ORDERED: MORPHINE SULFATE 4 MG/ML INJ. IVP ONE (23:45)
[2020-09-09] MEDS ORDERED: IOHEXOL 300 MG/ML 100ML VIAL. IV ONE (23:45)
--- NOTE | 2020-09-10 00:28 | RAD ---
INDICATION: Reason: right side abdominal pain;OMNI 300, 75ML / Spl. Instructions: / History: . COMPARISON: February 22, 2019 TECHNIQUE: Axial CT images obtained through the abdomen and pelvis with contrast. One or more of the following individualized dose reduction techniques were utilized for this examinat ion: 1. Automated exposure control; 2. Adjustment of the mA and/or kV according to patient size; 3 . Use of iterative reconstruction technique. FINDINGS: Mild dependent opacities at lung bases which could be from atelectasis. Abdominal aorta is not aneurysmal. No intrahepatic bile duct dilation. Liver is mildly low density. Nonspecific but can be seen with fatty infiltration. There is a focus of low density adjacent to the falciform ligament within the liver. Could be artifactual in nature or s econdary to focal fat given the location. No peripancreatic fluid collection. Lobulated appearance of the spleen. No hydronephrosis. Intrauterine device is seen. Urinary bladder is distended at time of exam. Surgical clips at the right lower quadrant could be from prior appendectomy. Small fat-containing umbilical hernia. Degenerative changes the spine. IMPRESSION: * Urinary bladder is dilated at time of exam. Could be from the patient not urinating recently but w ould correlate with symptoms to ensure that this is not secondary to causes such as partial bladder o utlet obstruction. * No hydronephrosis. Electronically signed by: Rishabh Shay MD (09/10/2020 12:26 AM) [id number]
[2020-09-10 00:36] VITALS: BP 101/55
[2020-09-10] MEDS ORDERED: ONDA4TAB7 PO (01:03)
== END 2020-09-10 01:05 | disposition home or self-care (01) ==
LOC: ER 16:40
DX: R10.11 Right upper quadrant pain (principal); R11.2 Nausea with vomiting, unspecified; R19.7 Diarrhea, unspecified; G43.909 Migraine, unspecified, not intractable, without status migrainosus; Z87.891 Personal history of nicotine dependence; Z90.89 Acquired absence of other organs; Z88.1 Allergy status to other antibiotic agents; Z88.8 Allergy status to other drugs, medicaments and biological substances
CPT/HCPCS: 36415; 74177; 76705; 80053; 81001; 81025; 83690; 85007; 85025; 87086; 96361; 96372; 96374; 96375; 99285; J0500; J1885; J2405; J7030; Q9967

== ENCOUNTER 2020-10-22 07:35 | Day surgery (SDC) | payer OTHER ==
[~2020-10-22] VITALS: Ht 175.3 cm; Wt 95.4 kg
[~2020-10-22 07:35] MED LIST changes: +BUPIVACAINE MPF 0.5% 30 ML VIAL. ONE; +DICY10CA3 PO; +FAMO-63 PO; +HYDROmorphone 2 MG/ML VIAL IVP PRN; +IOHEXOL 300 MG/ML 50 ML VIAL. ONE; +MORPHINE SULFATE 2 MG/ML INJ. IVP PRN; +ONDA4TAB7 PO; +PANT40TA77 PO; +PROCHLORPERAZINE 10 MG/2 ML VIAL. IVP PRN; +SURGICEL HEMOSTAT 4X8 EACH. ONE; +fentaNYL PF VIAL 100 MCG/2 ML VIAL IVP PRN
[2020-10-22] MEDS: IV RINGERS,LACTATED 1000ML 1,000 ML IV SCH ×2 (08:24→11:59)
[2020-10-22] MEDS ORDERED: ONDANSETRON PF 4 MG/2 ML VIAL. ONE (08:47)
[2020-10-22] MEDS ORDERED: DEXAMETHASONE SOD PHOS 4 MG/ML VIAL ONE (08:47)
[2020-10-22] MEDS ORDERED: PROPOFOL 10 MG/ML (20ML) VIAL. IV ONE (08:47)
[2020-10-22] MEDS ORDERED: LIDOCAINE 2% PF 5 ML VIAL. ONE (08:47)
[2020-10-22] MEDS ORDERED: fentaNYL PF VIAL 100 MCG/2 ML VIAL ONE ×2 (08:48→09:53)
[2020-10-22] MEDS ORDERED: MIDAZOLAM HCL/PF 2 MG/2 ML VIAL. ONE (08:48)
[2020-10-22] MEDS ORDERED: ROCURONIUM 50 MG/5 ML VIAL. ONE (08:48)
[2020-10-22] MEDS ORDERED: SCOPOLAMINE 1.5MG PATCH. TD ONE (09:00)
[2020-10-22] MEDS ORDERED: SCOPOLAMINE 1.5MG PATCH. TD SCH (09:00)
[2020-10-22] MEDS ORDERED: FAMOTIDINE 20 MG/2 ML VIAL ONE (09:47)
[2020-10-22] MEDS ORDERED: diphenhydrAMINE 50 MG/ML VIAL ONE (09:47)
[2020-10-22] MEDS ORDERED: KETOROLAC 30 MG/ML VIAL. ONE (09:53)
[2020-10-22] MEDS ORDERED: GLYCOPYRROLATE 1 MG/5 ML VIAL. ONE (10:03)
[2020-10-22] MEDS ORDERED: NEOMY/BACITR/POLYMYXIN OINT PACKET. TP ONE ×3 (10:11→10:54)
[2020-10-22] MEDS ORDERED: SEVOFLURANE 61 TO 120 MINUTES. IH ONE (10:20)
--- NOTE | 2020-10-22 10:58 | RAD ---
C-arm fluoroscopy with fluoroscopic spot views Clinical indications: Intraoperative cholangiogram. History of abdominal pain. Cholecystectomy. Total fluoroscopic time: 5.9 seconds. Total fluoroscopic spot views: 2. FINDINGS/ IMPRESSION: Fluoroscopic spot views demonstrate opacification of a nondilated extra hepatic biliary t ree with free flow of contrast material from the common bile duct into the duodenum. No stone or stri cture is evident. Electronically signed by: Jaya Sweeney MD (10/22/2020 10:55 AM) [id number]
--- NOTE | 2020-10-22 11:26 | PDOC4 ---
Operative Note Operative Note Operative Note: Preoperative Diagnosis: Symptomatic cholelithiasis Postoperative Diagnosis: Same Procedure: Laparoscopic cholecystectomy with intraoperative cholangiogram Surgeons: Johnny Dough Braker: SHANNON Mei Anesthesia: Gen. Estimated Blood Loss: 10 mL Specimen: Gallbladder to pathology Drains: None Complications: None Indications: The patient is a 30-year-old female who underwent evaluation for right upper quadrant pain. A gallbladder sonogram showed sludge versus suspected gallstones. Surgical treatment was offered by means of a laparosc opic cholecystectomy. The risks of surgery were discussed which include bleeding, infection, bile duct injury, bile leak, pain, the potential for additional surgeries or procedures. The patient understands and would like to proceed. Description: The patient was taken to the operating room and laid supine on the operating table. General anesthesia was performed. The abdomen was prepped with ChloraPrep and draped in a standard surgical fashion. A small supraumbilical incision was made with a scalpel. The Veress needle was then inserted and a pneumoperitoneum was then created. A 5 mm trocar was then inserted and the laparoscope was introduced. In the upper midabdomen a 5 mm trocar was inserted and in the right upper quadrant two 2.3 mm mini lap graspers were inserted. The gallbladder was retracted cephalad. The cystic duct was dissected free from surrounding tissues. One clip was placed on the duct near the gallbladder junction. An opening was made in the duct and a cholangiocatheter placed within and secured with a clip. Using contrast dye and fluoroscopy an intraoperative cholangiogram was performed that appeared unrema rkable. The clip and catheter were then withdrawn. Three clips were placed on the cystic duct and it was divided. The cystic artery was then identified, dissected free, doubly clipped and divided as well. The gallbladder was then mobilized away from the liver with cautery. The umbilical 5 millimeter trocar was exchanged for an 11 millimeter trocar. The gallbladder was then placed in an endoscopic bag and extracted at the umbilical trocar site. The fascia there was closed with an 0 Vicryl suture and infiltrated with 0.5% marcaine. All blood and irrigation fluid was suctioned and hemostasis was good. The remaining ports were removed and the pneumoperitoneum was relieved. The skin incisions were closed using 4-0 Monocryl suture. Steri-Strips and dressings were then applied. The patient tolerated the procedure well and was sent to the recovery room in stable condition. At the end of the case all counts were correct. NATHANIEL ALSTON MD Oct 22, 2020 11:26
[2020-10-22] MEDS ORDERED: OXYC1TAB15 PO (11:28)
--- NOTE | 2020-10-22 11:31 | DISCH ---
DISCHARGE INSTRUCTIONS Condition on Discharge Condition on Discharge: Stable Activity After Discharge Activity Instructions for Disc: Other, see below (no lifting over 20 lbs X 2 weeks, no driving while taking pain meds) Diet after Discharge Diet after Discharge: Regular Wound Incision Care Wound/Incision Care: No wound care needed, Other, see below (may remove b andaids tomorrow and shower, steristrips fall off on their own) Follow-Up Follow up with: Dr Alston in 2 weeks in office, call for appt [phone] NATHANIEL ALSTON MD Oct 22, 2020 11:31
[2020-10-22] MEDS ORDERED: oxyCODONE/APAP 5/325 1 TAB TABLET PO ONE (12:15)
[2020-10-22 13:03] VITALS: BP 117/68
--- NOTE | 2020-10-24 17:10 | PATHOLOGY ---
[facility] Accession Number: [id number] . 01 Material submitted: . gallbladder - GALLBLADDER AND CONTENTS . 01 Clinical history: . SYMPTOMATIC CHOLELITHIASIS LAP BAYLEE W/ GRAMS . 02 Diagnosis: Gallbladder, laparoscopic cholecystectomy: - Cholesterolosis. - Chronic cholecystitis. - Reactive changes of gallbladder neck lymph node. (JPM:stephen; 10/24/2020) QMS 10/24/2020 1016 Local . 02 Comment: There are no calculi identified within the gallbladder lumen or specimen container. There is no evidence of malignancy. (JPM:stephen; 10/24/2020) . 02 Electronically signed: . Tremaine Rodriguez MD, Pathologist NPI- [id number] . 01 Gross description: . Fixative: Formalin Labeled: Cervantesmata, Diane, gallbladder and contents Specimen received: Intact Dimensions: 7.0 x 3.4 x 3.2 cm Lymph node: Sears, rubbery, 0.7 x 0.3 x 0.3, trisected Serosa: Blue-green, and glistening Calculi: None Mucosa: Green and velvety with abundant bravo stippling Average wall thickness: 0.2 cm Abnormalities: None A1: Gallbladder, represented to include the entirety of the candidate lymph node(PAIUTE-SHOSHONE; 10/23/2020) DKA/DKA 10/23/2020 1049 Local . 02 Pathologist provided ICD-10: K81.1, K82.4 . 02 CPT . 352542 Specimen Comment: A courtesy copy of this report has been sent to [phone] Specimen Comment: [phone] Specimen Comment: Report sent to / DR CHEN Performed at: 01 [facility] [address] [facility] [address], [place], [place] [id number] MD Tariq Engel MD Phone: [phone] Performed at: [address] [id number] MD Tremaine Rodriguez MD Phone: [phone]
== END 2020-10-22 13:55 | disposition home or self-care (01) ==
LOC: SURG 07:35
PROVIDERS: ATTEND Surgery
DX: K80.10 Calculus of gallbladder with chronic cholecystitis without obstruction (principal); E66.9 Obesity, unspecified; K21.9 Gastro-esophageal reflux disease without esophagitis; Z87.891 Personal history of nicotine dependence; Z79.899 Other long term (current) drug therapy; Z98.890 Other specified postprocedural states; Z88.8 Allergy status to other drugs, medicaments and biological substances
CPT/HCPCS: 47563; 74300; 81025; A4213; A4314; A4364; A4930; A6219; C1887; J0690; J1100; J1200; J1885; J2250; J2405; J2704; J3010; J3490; Q9967; 88304; A4452; A4657

== ENCOUNTER → 2020-11-06 | Outpatient (CLI) | payer OTHER ==
[2020-10-22 13:03] VITALS: BP 117/68
[~2020-11-06] MED LIST changes: -BUPIVACAINE MPF 0.5% 30 ML VIAL. ONE; -HYDROmorphone 2 MG/ML VIAL IVP PRN; -IOHEXOL 300 MG/ML 50 ML VIAL. ONE; -MORPHINE SULFATE 2 MG/ML INJ. IVP PRN; -PROCHLORPERAZINE 10 MG/2 ML VIAL. IVP PRN; -SURGICEL HEMOSTAT 4X8 EACH. ONE; -fentaNYL PF VIAL 100 MCG/2 ML VIAL IVP PRN
[2020-11-06 10:06] LABS: FREE T4 0.86 ng/dL (0.76-1.46); THYROID STIM HORMONE (TSH) 1.574 uIU/mL (0.358-3.74)
== END ==
LOC: LAB 09:19
PROVIDERS: ATTEND Nurse Practitioner Family
DX: E89.0 Postprocedural hypothyroidism (principal)
CPT/HCPCS: 36415; 84439; 84443

== ENCOUNTER → 2021-03-13 | Outpatient (CLI) | payer OTHER | LOC: LAB 09:03 | PROVIDERS: ATTEND Family Medicine | DX: N91.2 Amenorrhea, unspecified (principal) | CPT/HCPCS: 36415; 84702 ==

== ENCOUNTER → 2021-03-25 | Outpatient (CLI) | payer OTHER ==
[2021-03-25 09:35] LABS: BASO % 0 % (0-3); EOS # 0.1 x10^3/uL (0.0-0.7); EOS % 1 % (0-3); HEMATOCRIT 39.2 % (36.0-47.0); HEMOGLOBIN 12.9 g/dL (12.0-15.5); LYMPH # 1.2 x10^3/uL (1.0-4.8); LYMPH % 18 % (24-48); MEAN CORPUSCULAR HEMOGLOBIN 29 pg (25-35); MEAN CORPUSCULAR HGB CONC 33 g/dL (31-37); MEAN CORPUSCULAR VOLUME 89 fL (79-100); MONO # 0.5 x10^3/uL (0.0-1.1); MONO % 7 % (0-9); NEUT # 4.9 x10^3/uL (1.8-7.7); NEUT % 73 % (31-73); PLATELET COUNT 306 x10^3/uL (140-400); RED BLOOD COUNT 4.42 x10^6/uL (3.50-5.40); RED CELL DISTRIBUTION WIDTH 15.4 % (11.5-14.5); WHITE BLOOD COUNT 6.8 x10^3/uL (4.0-11.0)
[2021-03-25 09:52] LABS: FREE T4 0.78 ng/dL (0.76-1.46); THYROID STIM HORMONE (TSH) 1.717 uIU/mL (0.358-3.74)
[2021-03-25 10:06] LABS: ALBUMIN 3.5 g/dL (3.4-5.0); ALBUMIN/GLOBULIN RATIO 0.9 (1.0-1.7); CALCIUM 8.4 mg/dL (8.5-10.1); CREATININE 0.8 mg/dL (0.6-1.0); GFR 84.8; POTASSIUM 4.5 mmol/L (3.5-5.1); TOTAL BILIRUBIN 0.3 mg/dL (0.2-1.0); TOTAL PROTEIN 7.3 g/dL (6.4-8.2)
== END ==
LOC: LAB 08:58
PROVIDERS: ATTEND Nurse Practitioner Family
DX: R11.0 Nausea (principal); E03.9 Hypothyroidism, unspecified; N91.2 Amenorrhea, unspecified
CPT/HCPCS: 36415; 80053; 83540; 83550; 84439; 84443; 84702; 85025

== ENCOUNTER → 2021-05-08 | Outpatient (CLI) | payer OTHER ==
--- NOTE | 2021-05-08 07:02 | RAD ---
EXAMINATION: RIGHT UPPER QUADRANT ULTRASOUND CLINICAL HISTORY: RUQ PAIN. TECHNIQUE: Sonography of the right upper quadrant was performed. COMPARISON: None FINDINGS: Pancreas: Not visualized secondary to prominent overlying bowel gas. Liver: - Echotexture: Normal, homogeneous. - Echogenicity: Normal - Surface contour: Smooth - Lesions: None. Biliary: No intrahepatic biliary duct dilation. - CBD: 6 mm. - Gallbladder: Cholecystectomy. Right Kidney: Measures 12.2 cm in length. No hydronephrosis or focal lesion. Ascites: None. Aorta/IVC: Partially visualized aorta and IVC unremarkable. IMPRESSION: Cholecystectomy. Nonvisualized pancreas. Electronically signed by: Jacoby Lombardo DO (05/08/2021 7:00 AM) [facility]
== END ==
LOC: US 06:27
PROVIDERS: ATTEND Nurse Practitioner Family
DX: R10.11 Right upper quadrant pain (principal); Z90.49 Acquired absence of other specified parts of digestive tract
CPT/HCPCS: 76705

== ENCOUNTER → 2021-05-11 | Outpatient (CLI) | payer OTHER | LOC: LAB 14:20 | PROVIDERS: ATTEND Registered Nurse | DX: O20.9 Hemorrhage in early pregnancy, unspecified (principal) | CPT/HCPCS: 36415; 84702 ==

== ENCOUNTER → 2021-05-21 | Outpatient (CLI) | payer OTHER ==
[2021-05-21 14:09] LABS: CALCIUM 9.2 mg/dL (8.5-10.1); CREATININE 0.7 mg/dL (0.6-1.0); GFR 98.3; POTASSIUM 4.1 mmol/L (3.5-5.1); TOTAL BILIRUBIN 0.5 mg/dL (0.2-1.0); TOTAL PROTEIN 8.1 g/dL (6.4-8.2)
[2021-05-21 14:11] LABS: CHOLESTEROL/HDL RATIO 4.1
[2021-05-23 11:11] LABS: HEMOGLOBIN A1C 5.8 % (4.8-5.6)
== END ==
LOC: LAB 13:05
PROVIDERS: ATTEND Internal Medicine Endocrinology, Diabetes & Metabolism
DX: E04.2 Nontoxic multinodular goiter (principal); R73.9 Hyperglycemia, unspecified; E66.9 Obesity, unspecified
CPT/HCPCS: 36415; 80053; 80061; 83036

== ENCOUNTER → 2021-06-12 | Outpatient (CLI) | payer OTHER ==
[2021-06-12 15:03] LABS: HEMATOCRIT 39.8 % (36.0-47.0); HEMOGLOBIN 13.8 g/dL (12.0-15.5); RED BLOOD COUNT 4.39 x10^6/uL (3.50-5.40); RED CELL DISTRIBUTION WIDTH 13.9 % (11.5-14.5); WHITE BLOOD COUNT 7.6 x10^3/uL (4.0-11.0)
[2021-06-13 20:08] LABS: RUBELLA IGG ANTIBODY 2.77 index (Immune >0.99)
== END ==
LOC: LAB 14:30
PROVIDERS: ATTEND Registered Nurse
DX: Z34.91 Encounter for supervision of normal pregnancy, unspecified, first trimester (principal)
CPT/HCPCS: 36415; 84144; 84702; 85027; 85660; 86592; 86703; 86762; 86787; 86803; 86850; 86900; 86901; 87077; 87086; 87186; 87340; 87491; 87591

== ENCOUNTER → 2021-06-15 | Outpatient (CLI) | payer OTHER | LOC: LAB 08:13 | PROVIDERS: ATTEND Registered Nurse | DX: N91.2 Amenorrhea, unspecified (principal) | CPT/HCPCS: 36415; 84144; 84702; 86900; 86901 ==